=== PATIENT | male | born 1960 | race Caucasian/White ===

== ENCOUNTER 2017-08-29 22:47 | Inpatient (IN) ==
[2017-08-29] MEDS ORDERED: 0.9 % Sodium Chloride 1,000 ML IVC ONE (22:58)
[2017-08-29] MEDS ORDERED: Cefepime HCl 1,000 MG in Water for inj. (sterile) 20 ML 20 ML IVP STA (22:59)
--- NOTE | 2017-08-29 23:06 | Emergency Department Note ---
Disposition Clinical Impression: Bacteremia due to group B Streptococcus Osteomyelitis Qualifiers: Osteomyelitis type: acute hematogenous Osteomyelitis location: foot Laterality : right Qualified Code(s): M86.071 - Acute hematogenous osteomyelitis, right ankle and foot Diabetic ulcer of right foot Qualifiers: Diabetic foot ulcer location: toe Diabetes mellitus type: type 2 Non-pressure ulcer stage: unspecified non-pressure ulcer stage Qualified Code(s): E11.621 - Type 2 diabetes mellitus with foot ulcer; L97.519 - Non-pressure chronic ulcer of other part of right foot with unspecified severity; L97.519 - Non-pressure chronic ulcer of other part of right foot with unspecified severity; L97.519 - Non-pressure chronic ulcer of other part of right foot with unspecified severity ; L97.519 - Non-pressure chronic ulcer of other part of right foot with unspecified severity Disposition: Admitted As Inpatient Condition: Undetermined Referrals: Tha Dos Santos Jr, MD [Primary Care Provider] - Forms: ED Satisfaction Letter Time of Disposition: 00:16 Recheck wound or abnormal lab - General Chief Complaint: ED Recheck/Abnormal Lab/Rx Stated Complaint: Positive Culture Time Seen by Provider: 08/29/17 22:51 Source: patient Mode of arrival: ambulatory Limitations: no limitations Nursing Notes Reviewed: Yes Vital Signs Reviewed: Yes - History of Present Illness HPI Narrative: 57-year-old male diabetic with hypertension arrives to the emergency department complaint of generalized body aches, cough, diabetic foot ulcer of the right great toe. The patient was seen earlier today was evaluated with blood cultures drawn at that time. Blood cultures revealed group B strep. The patient was called to come back into the emergency department. The patient has continued to experience worsening symptoms and is complaining of third of his right great toe as well as cough. He was administered Tylenol prior to arrival. The patient states that he continues to feel ill. He denies any chest pain, difficulty breathing, abdominal pain but admits to fevers, chills, generalized weakness and right great toe. Is currently being taken care of by Dr. Boyd in podiatry. - Related Data Home Medications Medication Instructions Recorded Confirmed Carvedilol [Coreg] 12.5 mg PO BIDWM 02/10/15 08/29/17 Clopidogrel [Plavix] 75 mg PO DAILY 02/10/15 08/29/17 Losartan [Cozaar] 25 mg PO HS 02/10/15 08/29/17 Rosuvastatin [Crestor] 40 mg PO HS 02/10/15 08/29/17 Aspirin [Lo-Dose Aspirin EC] 81 mg PO DAILY 01/01/16 08/29/17 Magnesium Oxide [Magnesium] 500 mg PO BID 01/01/16 08/29/17 Ropinirole HCl [Requip] 1 mg PO HS 01/01/16 08/29/17 Bumetanide [Bumex] 1 mg PO BIDDIURETIC 02/09/16 08/29/17 Insulin Pump Cartridge [Insulin 1 device SQ AD 08/29/17 08/29/17 Pump] Spironolactone [Aldactone] 25 mg PO DAILY 08/29/17 08/29/17 Previous Rx's Medication Instructions Recorded Benzonatate [Tessalon] 200 mg PO TID PRN #21 capsule 08/29/17 Allergies Allergy/AdvReac Type Severity Reaction Status Date / Time chicken derived Allergy See Verified 08/29/17 22:51 Comments All systems ED: reviewed and negative except as stated. Constitutional: Reports: fever, chills, weakness ENT ED: Denies: congestion Cardiovascular: Reports: chest pain. Denies: dyspnea on exertion, edema Respiratory: Reports: cough, dyspnea. Denies: wheezes Gastrointestinal: Denies: abdominal pain Genitourinary: Denies: urgency, dysuria Musculoskeletal: Reports: arthralgia, myalgia. Denies: back pain, neck pain Integumentary: Denies: rash Neurological: Denies: headache Past Medical History - Past Medical History Attestation: Yes The following information was validated with the patient. Source: patient, old records reviewed Medical history: Reports: atrial fibrillation, cardiomyopathy, CHF, diabetes, myocardial infarction, other Surgical history: Reports: angioplasty/stent, other Psychiatric history: Reports: no psych history - Social History Smoking Status: Former smoker Smokeless Tobacco Status: No Alcohol use: Reports: rarely Drug use: Reports: none Physical Exam - General Limitations: no limitations General appearance: alert, in no apparent distress - Head Head exam: atraumatic, normocephalic, normal inspection - Eye Eye exam: Present: normal appearance, PERRL, EOMI - ENT ENT exam: normal exam, normal oropharynx, mucous membranes moist - Neck Neck exam: Present: normal inspection, full ROM, trachea midline - Chest Chest inspection: Present: normal inspection, symmetric chest wall rise - Respiratory Respiratory exam: Present: normal lung sounds bilaterally - Cardiovascular Cardiovascular exam: Present: regular rate, normal rhythm, normal heart sounds - Abdominal Exam Abdominal exam: Present: soft, Non-Tender. Absent: tenderness, distention, guarding, rebound, rigidity - Extremities Exam Extremities exam: Present: full ROM, tenderness (Right great toe and anterior tabares of the right side), other (Patient has a tunneled chronic diabetic foot ulcer on the plantar aspect of the right great toe. Upon bandage removal large amount of purulent fluid came out. Is mildly erythematous surrounding the wound.) - Neurological Exam Neurological exam: Present: alert, oriented X3 - Skin Skin exam: Present: warm, dry, normal color Course Vital Signs Temperature 98.5 F 08/29/17 22:49 Pulse Rate 75 08/29/17 22:49 Respiratory Rate 16 08/29/17 22:49 Blood Pressure 107/68 08/29/17 22:49 O2 Sat by Pulse Oximetry 95 08/29/17 22:49 Temperature 98.5 F 08/29/17 23:20 Pulse Rate 75 08/29/17 23:20 Respiratory Rate 16 08/29/17 23:20 Blood Pressure 107/68 08/29/17 23:20 O2 Sat by Pulse Oximetry 95 08/29/17 23:20 Oxygen Delivery Oxygen Delivery Room Air Recheck wound or abnormal lab - MDM Narrative Medical decision making narrative: Workup in the emergency department with some repeat labs demonstrates again an acute kidney injury. In addition the patient does have an elevated troponin at 0.06 which appears baseline for the patient, however the patient was administered aspirin. The patient denies any chest pain at this time. He is resting comfortably in the room. Given the patient's a diabetic foot ulcer on the right great toe, we performed a CT scan of the patient's foot with concern for possible osteomyelitis. There is some abnormalities noted on CT scan with concern for possible osteomyelitis. The patient was administered cefepime as well as vancomycin. The cefepime was administered prior to the results of the CT scan due to the patient's positive blood culture for group B strep. In addition vancomycin was administered due to the patient's positive finding for possible osteomyelitis. We will admit the patient to the hospital at this time for further workup and care. Patient made aware and agrees to plan. No further questions or concerns noted. Accepted by Dr. Wong. - Lab Data Lab results reviewed: Yes I reviewed the patient's lab results. Result diagrams: 08/29/17 22:58 Lab Results 08/29/17 Range/Units 22:58 Sodium 133 L (136-145) mEq/L Potassium 4.7 (3.5-5.1) mEq/L Chloride 100 (98-107) mEq/L Carbon Dioxide 26 (23-29) mEq/L BUN 44 H (6-20) mg/dL Creatinine 1.51 H (0.70-1.30) mg/dL Est GFR ( Amer) 58 L (> 60) Est GFR (Non-Af Amer) 48 L (> 60) BUN/Creatinine Ratio 29 H (6-26) Glucose 316 H (70-105) mg/dL Calculated Osmolality 299 (280-300) Calcium 7.9 L (8.6-10.3) mg/dL Troponin I 0.06 H* (< 0.04) ng/mL - Radiology Data Radiology results reviewed: Yes I reviewed the patient's radiology results. Foot CT 08/29/17 22:59 IMPRESSION: Focal soft tissue ulcerations measuring 4 mm along the plantar medial aspect of the 1st digit with underlying infiltration of the subcutaneous fat and skin thickening consistent with cellulitis. Cellulitis extends into the medial/dorsal aspect of the foot. No evidence of discrete drainable fluid collection or soft tissue gas. Subtle cortical irregularity along the plantar aspect of the 1st distal phalanx may represent findings of osteomyelitis. MRI would be more sensitive. D/ / Moncho Abad MD / Moncho Abad MD Interpreting Provider: Moncho Abad MD
--- NOTE | 2017-08-29 23:15 | Emergency Department Note ---
Disposition Clinical Impression: Bacteremia due to group B Streptococcus Disposition: Admitted As Inpatient Forms: ED Satisfaction Letter General Adult HPI - General Chief complaint: ED Recheck/Abnormal Lab/Rx Stated complaint: Positive Culture Time Seen by Provider: 08/29/17 22:51 Source: patient Mode of arrival: ambulatory Limitations: no limitations - History of Present Illness Pain Scale: 6 - Related Data Home Medications Medication Instructions Recorded Confirmed Carvedilol [Coreg] 12.5 mg PO BIDWM 02/10/15 08/29/17 Clopidogrel [Plavix] 75 mg PO DAILY 02/10/15 08/29/17 Losartan [Cozaar] 25 mg PO HS 02/10/15 08/29/17 Rosuvastatin [Crestor] 40 mg PO HS 02/10/15 08/29/17 Aspirin [Lo-Dose Aspirin EC] 81 mg PO DAILY 01/01/16 08/29/17 Magnesium Oxide [Magnesium] 500 mg PO BID 01/01/16 08/29/17 Ropinirole HCl [Requip] 1 mg PO HS 01/01/16 08/29/17 Bumetanide [Bumex] 1 mg PO BIDDIURETIC 02/09/16 08/29/17 Insulin Pump Cartridge [Insulin 1 device SQ AD 08/29/17 08/29/17 Pump] Spironolactone [Aldactone] 25 mg PO DAILY 08/29/17 08/29/17 Previous Rx's Medication Instructions Recorded Benzonatate [Tessalon] 200 mg PO TID PRN #21 capsule 08/29/17 Allergies Allergy/AdvReac Type Severity Reaction Status Date / Time chicken derived Allergy See Verified 08/29/17 22:51 Comments Constitutional: Reports: fever, chills, weakness ENT ED: Denies: congestion Cardiovascular: Reports: chest pain. Denies: dyspnea on exertion, edema Respiratory: Reports: cough, dyspnea. Denies: wheezes Gastrointestinal: Denies: abdominal pain Genitourinary: Denies: urgency, dysuria Musculoskeletal: Reports: arthralgia, myalgia. Denies: back pain, neck pain Integumentary: Denies: rash Neurological: Denies: headache Past Medical History - Past Medical History Medical history: Reports: atrial fibrillation, cardiomyopathy, CHF, diabetes, myocardial infarction, other Surgical history: Reports: angioplasty/stent, other Psychiatric history: Reports: no psych history - Social History Smoking Status: Former smoker Smokeless Tobacco Status: No Alcohol use: Reports: rarely Drug use: Reports: none Physical Exam - General Limitations: no limitations General appearance: alert, in no apparent distress Course Vital Signs Temperature 98.5 F 08/29/17 22:49 Pulse Rate 75 08/29/17 22:49 Respiratory Rate 16 08/29/17 22:49 Blood Pressure 107/68 08/29/17 22:49 O2 Sat by Pulse Oximetry 95 08/29/17 22:49 Temperature 98.5 F 08/29/17 22:49 Pulse Rate 75 08/29/17 22:49 Respiratory Rate 16 08/29/17 22:49 Blood Pressure 107/68 08/29/17 22:49 O2 Sat by Pulse Oximetry 95 08/29/17 22:49 Oxygen Delivery Oxygen Delivery Room Air Attestation Statement - Attestation Attestation: I examined this patient and my medical decision-making was reviewed with the Resident Physician. I agree with the documented findings, disposition and treatment plan as described except to the extent set forth below. 57 year old male presntes to the ED with comlanits of (+) blood culture for group B strep, it appears the infection is likely origniating from his right foot and is and is a diabetic and follows with [facility] podiatry. We will start karinao and nikko and admit to medicine.
[2017-08-29 23:47] LABS: Calcium 7.9 mg/dL (8.6-10.3); Potassium 4.7 mEq/L (3.5-5.1)
[2017-08-29 23:50] LABS: Troponin I 0.06 ng/mL (< 0.04)
[2017-08-29] MEDS ORDERED: Aspirin 325 MG TABLET PO ONE (23:51)
[2017-08-30] MEDS ORDERED: *HR* Dextrose 50 % in Water (Syg) 50 ML SYRINGE IVP PRN (00:21)
[2017-08-30] MEDS ORDERED: Dextrose Gel 15 GM/37.5 ML TUBE PO PRN ×2 (00:21)
[2017-08-30] MEDS ORDERED: D5% in Water 1,000 ML IVC PRN (00:21)
--- NOTE | 2017-08-30 00:45 | Internal Med History&Physical ---
Date of Encounter: 08/30/17 Time of Encounter: 00:31 Internal Medicine - H&P: HPI Chief complaint: Positive blood cultures Admitted From: Emergency Dept Plans for Post Hospital Care: Home History of present illness: Mr. Lyon is a 57 year old male with history of CAD s/p 2 stents, afib s/p ablation in 2012 was on Xarelto and taken off after 3 years of no afib episodes post ablation, DM, diabetic neuropathy, CKD3, htn who was called to come to the ED for positive blood cultures collected earlier in the day through the ED as he was evaluated earlier. At the time he had come in with constellation of symtoms including subjective fevers, chest tightness, cough that has been going on for 4 days or so. His also noted that his right toe ulceration has been tunneling and draining for the last couple of days. He underwent a work up in the ED and blood cultures were collected. He had elevated trops at .05 but is chronically elevated. EKG was done and showed no acute ST or T wave changes at the time. His language tutor at [facility] was consulted and reviewed the patient's findings and per documentation discharge was ok per them. Blood cultures came back + for GBS and the patient was called to come in later in the day. He has an ulceration on his right toe and a CT of his foot was done showing findings of cellulitis and possible osteomyelitis. He was given vancomycin and cefepime in the ED. labs showed no leukocytosis. creatinine slightly above baseline, trops at .06. The patient complains of generalized weakness and body aches. He sees Dr. Boyd in podiatry as an outpatient. He has had multiple other toe ulcerations that have been worked on by Dr. Boyd. Back in June he had some debridement done. The patient has had + wound cultures from the right great toe back in April of 2017 that grew E. coli, Strep agalactiae, and pseudomonas that was pansensitive. Per his he finished a course of oral abx at the time. Past Med Surg Social Fam HX - Past Medical History Medical history: atrial fibrillation, cardiomyopathy, CHF, diabetes, myocardial infarction, other Psychiatric history: no psych history - Past Surgical History Surgical History: angioplasty/stent, other - Social History Smoking Status: Former smoker Smokeless Tobacco Status: No Alcohol use: rarely Drug use: none - Family History Mother Family Member Ethnicity: Non- Living Status: Still Living Hx Family Cardiac Disorders: Yes Hx Family Respiratory Disorders: No Hx Family Cancer: No Hx Family GI Disorders: No Hx Family Endocrine Disorder: Yes Hx Family Neuromuscular Disorders: No Hx Family Neurologic Disorders: No Hx Family HEENT Disorders: No Hx Family Autoimmune Disorders: Yes Sister Adopted: [place]: Clarisse Lyon Age: 57 Living Status: Age at : 58 Cause of : Septic shock Hx Family Endocrine Disorder: Yes (DM) Internal Medicine - H&P: Meds Clopidogrel [Plavix] 75 mg PO DAILY 02/10/15 [History] Aspirin [Lo-Dose Aspirin EC] 81 mg PO DAILY 01/01/16 [History] Magnesium Oxide [Magnesium] 500 mg PO BID 01/01/16 [History] Ropinirole HCl [Requip] 1 mg PO HS 01/01/16 [History] Bumetanide [Bumex] 1 mg PO QPM 02/09/16 [History] Benzonatate [Tessalon] 200 mg PO TID PRN #21 capsule 08/29/17 [Rx] Insulin Pump Cartridge [Insulin Pump] 1 device SQ AD 08/29/17 [History] Spironolactone [Aldactone] 25 mg PO DAILY 08/29/17 [History] Atorvastatin Calcium [Lipitor] 80 mg PO .EVERY OTHER DAY 08/30/17 [History] Carvedilol [Coreg] 37.5 mg PO BID 08/30/17 [History] Dulaglutide [Trulicity] 0.75 mg SQ QWEEK 08/30/17 [History] Levomefolate/B6/B12/Algal Oil [Metanx Capsule] 1 tab PO BID 08/30/17 [History] Sacubitril/Valsartan [Entresto 97 mg-103 mg Tablet] 1 tab PO BID 08/30/17 [ History] 3 Allergy/AdvReac Type Severity Reaction Status Date / Time chicken derived Allergy See Verified 08/29/17 22:51 Comments All Systems PM: A 10-system review of systems was performed and is negative for pertinent findings except as documented above in the HPI. Review of systems: All systems reviewed are negative except for as mentioned above - Constitutional Vitals: Temp Pulse Resp BP Pulse Ox 98.5 F 75 16 107/68 95 08/29/17 23:20 08/29/17 23:20 08/29/17 23:20 08/29/17 23:20 08/29/17 23:20 Exam: GEN: NAD HEENT: AT, NC, No cyanosis, oral mucosa is moist, No JVD Lymphatics: No lymphadenoapthy Eyes: Extrocular muscles intact, anicteric CVS:RRR. S1, S2, No m/r/g RESP: CTAB ABD: Soft, NT, ND, +BS EXT: No edema, No rashes, 2+ DP. A couple of ulcerations noted on the LE legs. right great toe with tunneled ulceration on the plantar side of great right toe. pink colored drainage noted upon squeezing. NEURO: Nonfocal, CN II-XII intact, No focal motor or sensory deficits Psych: Cooperative, Not anxious or depressed Internal Med - H&P Results - Labs CBC & Chem 7: 08/29/17 22:58 Labs: BMP 08/29/17 22:58 Sodium 133 L Potassium 4.7 Chloride 100 Carbon Dioxide 26 BUN 44 H Creatinine 1.51 H Glucose 316 H Calcium 7.9 L Cardiac Enzymes 08/29/17 Range/Units 22:58 Troponin I 0.06 H* (< 0.04) ng/mL - Impressions ITS Impressions Foot CT 08/29/17 22:59 IMPRESSION: Focal soft tissue ulcerations measuring 4 mm along the plantar medial aspect of the 1st digit with underlying infiltration of the subcutaneous fat and skin thickening consistent with cellulitis. Cellulitis extends into the medial/dorsal aspect of the foot. No evidence of discrete drainable fluid collection or soft tissue gas. Subtle cortical irregularity along the plantar aspect of the 1st distal phalanx may represent findings of osteomyelitis. MRI would be more sensitive. D/ / Moncho Abad MD / Moncho Abad MD Interpreting Provider: Moncho Abad MD - Assessment and plan (1) Bacteremia due to group B Streptococcus Current Visit: Yes Status: Acute Assessment and plan: Likely from his foot as the source. Given vanco/cefepime in the ED. Patient is nontoxic looking. Will put him on zosyn for now and await final cultures. Repeat blood cultures in 1-2 days for resolution. (2) Osteomyelitis Current Visit: Yes Status: Acute Assessment and plan: consult podiatry. Will check ESR and CRP. abx as above. Send for wound culture. Qualifiers: Osteomyelitis type: other Osteomyelitis location: foot Laterality: right Qualified Code(s): M86.8X7 - Other osteomyelitis, ankle and foot (3) CKD (chronic kidney disease) Current Visit: Yes Status: Acute Assessment and plan: seems to be slightly above baseline. Will hold nephrotoxins for now (patient is on Aldactone and Bumex). No IVF due to history of CHF. Qualifiers: Chronic kidney disease stage: stage 3 (moderate) Qualified Code(s): N18.3 - Chronic kidney disease, stage 3 (moderate) (4) CHF (congestive heart failure) Current Visit: Yes Status: Acute Assessment and plan: Not in exacerbation. CXR is clear from earlier in the day. Hold bumex and aldactone for now. Those can possibly be restarted soon as his kidney function may be around baseline as it is. Hold coreg till BP improves. Patient has borderline EF of 35-40% on an echo from 2013 per documentations. states that his EF was in the 20s at some point after that and Entresto was started about 6 months ago and now he is back to 40% on an echo done at [facility] in May 2017. . No echo on file. Qualifiers: Heart failure type: systolic Heart failure chronicity: chronic Qualified Code(s): I50.22 - Chronic systolic (congestive) heart failure (5) CAD (coronary artery disease) Current Visit: No Status: Chronic Assessment and plan: Hold ASA/Plavix in case any procedures by podiatry. He was given 324 mg ASA in ED today. c/w statin. hold coreg due to borderline BP. Qualifiers: Coronary Disease-Associated Artery/Lesion type: [place] artery [place] vs. transplanted heart: [place] heart Associated angina: without angina Qualified Code(s): I25.10 - Atherosclerotic heart disease of [place] coronary artery without angina pectoris (6) Diabetes type 2, uncontrolled Current Visit: No Status: Acute Assessment and plan: check A1c. Will start sliding scale. Will give 20 unit levemir now. Qualifiers: Diabetes mellitus penitentiary insulin use: unspecified buttermaker continuous churn insulin use status Diabetes mellitus complication status: with kidney complications Diabetes mellitus complication detail: with chronic kidney disease Chronic kidney disease stage: stage 3 (moderate) Qualified Code(s): E11.22 - Type 2 diabetes mellitus with diabetic chronic kidney disease; E11.65 - Type 2 diabetes mellitus with hyperglycemia; E11.65 - Type 2 diabetes mellitus with hyperglycemia; E11.65 - Type 2 diabetes mellitus with hyperglycemia; E11.65 - Type 2 diabetes mellitus with hyperglycemia; N18.3 - Chronic kidney disease, stage 3 (moderate); N18.3 - Chronic kidney disease, stage 3 (moderate) (7) DVT prophylaxis Current Visit: No Status: Acute Assessment and plan: heparin SQ - Time Spent With Patient Total time spent is greater than 50% in coordination of care (as documented) at patient's floor/unit and/or counseling patient:
[2017-08-30] MEDS ORDERED: Naloxone 0.4 MG/ML INJ IVP PRN (00:46)
[2017-08-30] MEDS ORDERED: Insulin DETEMIR 100 UNIT/ML X5UNITS SQ ONE (00:57)
[2017-08-30] MEDS: Ondansetron 4 MG/2 ML VIAL IVP PRN ×2 (01:47→12:41)
[2017-08-30 05:05] LABS: Hematocrit 29.3 % (37.5-50.1); Immature Platelets 3.7 % (1.1-6.1)
[2017-08-30] MEDS: *HR* Heparin 5,000 UNIT/ML VIAL SQ SCH ×3 (05:08→22:09)
[2017-08-30 05:23] LABS: BUN/Creatinine Ratio 31 (6-26); Blood Urea Nitrogen 45 mg/dL (6-20); Calcium 8.1 mg/dL (8.6-10.3); Carbon Dioxide 27 mEq/L (23-29); Chloride 101 mEq/L (98-107); Glucose 290 mg/dL (70-105); Magnesium 2.7 mg/dL (1.6-2.6); Osmolality,Calculated 298 (280-300); Potassium 4.3 mEq/L (3.5-5.1); Sodium 133 mEq/L (136-145); eGFR For African Americans > 60 (> 60); eGFR For Non-African Americans 50 (> 60)
[2017-08-30 05:50] LABS: Basophils % 0.2 %; Eosinophils % 0.2 %; Hemoglobin 9.4 g/dL (12.9-16.9); Immature Granulocytes % 0.2 % (0-4); Lymphocytes # 0.4 K/mcL (0.6-4.6); Lymphocytes % 8.7 %; Mean Corpuscular HGB Conc 32.1 g/dL (31.6-35.5); Mean Corpuscular Hemoglobin 29.4 pg (28.0-33.3); Mean Corpuscular Volume 91.6 fL (83.0-100.0); Mean Platelet Volume 11.2 fL (9.4-12.4); Monocytes # 0.5 K/mcL (0.0-1.3); Monocytes % 11.7 %; Neutrophils # 3.4 K/mcL (1.6-8.9); Red Cell Distribution Width 14.7 % (11.5-14.5)
[2017-08-30 05:55] LABS: Platelet Count 95 K/mcL (140-400)
[2017-08-30] MEDS: Piperacillin/Tazobactam 3.375 GM in 0.9 % Sodium Chloride Mini Bag 100 ML IVPB SCH ×3 (08:41→23:39)
[2017-08-30] MEDS: Insulin LISPRO 300 UNITS/3 ML VIAL SQ SCH ×3 (08:45→17:24)
[2017-08-30 09:40] LABS: Estimated Average Glucose 301 mg/dl; Hemoglobin A1C 12.1 %
--- NOTE | 2017-08-30 10:18 | Event Note ---
Date of Encounter: 08/30/17 Time of Encounter: 09:50 Patient continues to have cough. Denies any abdominal pain. Does have nausea. No fever reported overnight. Awaiting evaluation by podiatry. The right great toe plantar ulcer draining purulent material. Tender to palpation. Continue current antibiotics. Supportive care. Monitor vital signs closely. Follow podiatry recommendations.
[2017-08-30] MEDS: Acetaminophen 325 MG TABLET PO PRN ×2 (15:16→22:10)
--- NOTE | 2017-08-30 16:12 | Podiatry Consult Note ---
Date of Encounter: 08/30/17 Time of Encounter: 12:00 Assessment and Plan (1) Diabetes type 2, controlled Current visit: No Status: Acute Qualifiers: Diabetes mellitus detention insulin use: with detention use Diabetes mellitus complication status: with hyperglycemia Qualified Code(s): E11.65 - Type 2 diabetes mellitus with hyperglycemia; Z79.4 - long-term (current) use of insulin (2) Toe ulcer due to DM Current visit: No Status: Acute Jennings stage 2 possible stage 3 ulceration of right great toe Plan: Admit for IV antibiotics Positive blood cultures on admission +GBS started on Zosyn Wound cultures obtained- await results CT scan obtained- Subtle cortical irregularity along the plantar aspect of the 1st distal phalanx may represent findings of osteomyelitis.- WBC normal, mildly elevated CRP and ESR- possibility of active osteo with immunosupression Will obtain 3 phase bone scan with possible indium scan following to determine if osteomyelitis is present Assessed wound at bedside, flushed with saline There is a 0.3cmx0.4cmx0.4cm ulceration to the medial base of the right great toe There is undermining of wound measuring 0.4cm circumference To assessment there is no probe to underlying structures noted at this time There is moderate purulent drainage noted to bandage which was removed from patients toe however there is no drainage on exam No odor, no fluctuance Will plan to remove devitalized tissue from wound tomorrow to allow for accurate assessment of wound bed and proper healing Calcium alginate applied to wound due to drainage, will write for BID dressing changes Foot CT 08/29/17 22:59 IMPRESSION: Focal soft tissue ulcerations measuring 4 mm along the plantar medial aspect of the 1st digit with underlying infiltration of the subcutaneous fat and skin thickening consistent with cellulitis. Cellulitis extends into the medial/dorsal aspect of the foot. No evidence of discrete drainable fluid collection or soft tissue gas. Subtle cortical irregularity along the plantar aspect of the 1st distal phalanx may represent findings of osteomyelitis. MRI would be more sensitive. D/ / 08/30/2017 07:24:18 Moncho Abad MD / silverio Interpreting Provider: Moncho Abad MD Foot X-Ray 08/30/17 10:19 IMPRESSION: Soft tissue swelling of the great toe with plantar ulcer. No subcutaneous gas or osseous destruction identified. If there remains concern for osteomyelitis, MRI is recommended. D/ / Ambrose Owen / Ambrose Owen Interpreting Provider: Ambrose Owen Qualifiers: Diabetes mellitus type: due to underlying condition Laterality: right Non -pressure ulcer stage: with fat layer exposed Qualified Code(s): E08.621 - Diabetes mellitus due to underlying condition with foot ulcer; L97.512 - Non- pressure chronic ulcer of other part of right foot with fat layer exposed; L97.512 - Non-pressure chronic ulcer of other part of right foot with fat layer exposed; L97.512 - Non-pressure chronic ulcer of other part of right foot with fat layer exposed; L97.512 - Non-pressure chronic ulcer of other part of right foot with fat layer exposed (3) Skin tear Current visit: Yes Status: Acute There is a scabbed skin tear of the right skin with surrounding ecchymosis without clinical signs of infection Cleansed with saline, intact and appears to be healing Allevyn applied for protection Change Q72 hours History of Present Illness HPI: Mr. Lyon is a 57 year old male known to and the wound care clinic. Patient has had ongoing ulceration of the right great toe since mar 2017. Patient has a known history of uncontrolled DM2, CHF, CAD and CKD. Patient arrived to ED with reports of general malaise x4 days with reported fevers, chills and flu like symptoms. states 2 days ago she noticed purulent drainage from the right great toe chronic ulceration. Patient was also noted and called about +BC prior to admission. +GBS. Patient was admitted for IV antibiotics and evaluation. Upon arrival patient states he continues to feel weak and fevered. also notes he has a skin tear of his right tabares which she reports he hit on the tractor a few days ago. Denies any current calf pain or SOB. Patient had elevated troponins on admission and is under series, monitoring. WBC 4.5, ESR 46, CRP 91, glucose 200-300 and is afebrile. Patient was admitted and started on zosyn. We have been consulted for wound management and possible osteo of the right distal phalynx . Past Med Surg Social Fam HX - Past Medical History Medical history: atrial fibrillation, cardiomyopathy, CHF, diabetes, myocardial infarction, other Psychiatric history: no psych history - Past Surgical History Surgical History: angioplasty/stent, other - Social History Smoking Status: Former smoker Smokeless Tobacco Status: No Alcohol use: rarely Drug use: none - Family History Sister Adopted: [place]: Clarisse Lyon Age: 57 Living Status: Age at : 57 Cause of : Septic shock Hx Family Endocrine Disorder: Yes (DM) Mother Adopted: [place]: Stephanie Lyon Age: 84 Family Member Ethnicity: Non- Living Status: Still Living Hx Family Cardiac Disorders: Yes Hx Family Respiratory Disorders: No Hx Family Cancer: No Hx Family GI Disorders: No Hx Family Endocrine Disorder: Yes Hx Family Neuromuscular Disorders: No Hx Family Neurologic Disorders: No Hx Family HEENT Disorders: No Hx Family Autoimmune Disorders: Yes Medications and Allergies Clopidogrel [Plavix] 75 mg PO DAILY 02/10/15 [History] Aspirin [Lo-Dose Aspirin EC] 81 mg PO DAILY 01/01/16 [History] Magnesium Oxide [Magnesium] 500 mg PO BID 01/01/16 [History] Ropinirole HCl [Requip] 1 mg PO HS 01/01/16 [History] Bumetanide [Bumex] 1 mg PO QPM 02/09/16 [History] Benzonatate [Tessalon] 200 mg PO TID PRN #21 capsule 08/29/17 [Rx] Insulin Pump Cartridge [Insulin Pump] 1 device SQ AD 08/29/17 [History] Spironolactone [Aldactone] 25 mg PO DAILY 08/29/17 [History] Atorvastatin Calcium [Lipitor] 80 mg PO .EVERY OTHER DAY 08/30/17 [History] Carvedilol [Coreg] 37.5 mg PO BID 08/30/17 [History] Dulaglutide [Trulicity] 0.75 mg SQ QWEEK 08/30/17 [History] Levomefolate/B6/B12/Algal Oil [Metanx Capsule] 1 tab PO BID 08/30/17 [History] Sacubitril/Valsartan [Entresto 97 mg-103 mg Tablet] 1 tab PO BID 08/30/17 [ History] 3 Allergy/AdvReac Type Severity Reaction Status Date / Time chicken derived Allergy See Verified 08/29/17 22:51 Comments All Systems Reviewed: As per HPI Physical Exam - Constitutional Vitals: Temp Pulse Resp BP Pulse Ox 98.2 F 69 15 127/77 94 08/30/17 15:32 08/30/17 15:32 08/30/17 15:32 08/30/17 15:32 08/30/17 15:32 Exam: General Examination: CONSTITUTIONAL: Alert, oriented, in no acute distress, non-toxic. EXTREMITIES: CFT 3 seconds all toes. Edema +1 and pedal pulses palpable. SKIN: There is a 0.3cmx0.4cmx0.4cm ulceration to the medial base of the right great toe jennings stage 2 possible stage 3 There is undermining of wound measuring 0.4cm circumference Appears to be healthy granulation tissue to base but will need formal debridement at bedside for removal of devitalized tissue To assessment there is no probe to underlying structures noted at this time There is moderate purulent drainage noted to bandage which was removed from patients toe however there is no drainage on exam No odor, no fluctuance Mild erythema and edema noted to toe, does not extend to dorsum of foot. No ascending cellulitis noted at this time Mild warmth of toe to palpation. There is also a 2.5cmx1.5cm skin tear of the right skin. Skin intact. No fluctuance. Scab noted. Surrouding ecchymosis. No surrounding erythema or edema. No clinical signs of infection. No drainage. NEUROLOGIC: Loss of protective sensation, no sensation to light or moderate touch Results - Labs Result Diagrams: 08/30/17 04:49 08/30/17 04:49 Labs: Abnormal lab results RBC 3.20 M/mcL (4.19-5.50) L 08/30/17 04:49 Hgb 9.4 g/dL (12.9-16.9) L D 08/30/17 04:49 Hct 29.3 % (37.5-50.1) L 08/30/17 04:49 RDW 14.7 % (11.5-14.5) H 08/30/17 04:49 Plt Count 95 K/mcL (140-400) L 08/30/17 04:49 Lymphocytes # 0.4 K/mcL (0.6-4.6) L 08/30/17 04:49 ESR 46 mm/hr (0-10) H 08/29/17 23:09 Sodium 133 mEq/L (136-145) L 08/30/17 04:49 BUN 45 mg/dL (6-20) H 08/30/17 04:49 Creatinine 1.45 mg/dL (0.70-1.30) H 08/30/17 04:49 Est GFR (Non-Af Amer) 50 (> 60) L 08/30/17 04:49 BUN/Creatinine Ratio 31 (6-26) H 08/30/17 04:49 Glucose 290 mg/dL (70-105) H 08/30/17 04:49 POC Glucose 104 mg/dL (70-99) H 08/30/17 11:32 Hemoglobin A1c 12.1 % (-5.6) H 08/30/17 04:49 Calcium 8.1 mg/dL (8.6-10.3) L 08/30/17 04:49 Magnesium 2.7 mg/dL (1.6-2.6) H 08/30/17 04:49 Troponin I 0.05 ng/mL (< 0.04) H* 08/30/17 10:41 C-Reactive Protein 97 mg/L (Less than 10) H 08/29/17 22:58 H & H 08/30/17 Range/Units 04:49 Hgb 9.4 L D (12.9-16.9) g/dL Hct 29.3 L (37.5-50.1) % All other labs normal. Consult Discharge Plan - Plan Referrals: Tha Dos Santos Jr, MD [Primary Care Provider] -
[2017-08-30] MEDS: rOPINIRole 1 MG TABLET PO SCH (20:53)
[2017-08-30] MEDS ORDERED: Insulin LISPRO 300 UNITS/3 ML VIAL SQ SCH (21:00)
[2017-08-31 00:58] LABS: Basophils % 0.3 %; Eosinophils # 0.1 K/mcL (0.0-0.6); Eosinophils % 1.8 %; Hematocrit 29.4 % (37.5-50.1); Hemoglobin 9.4 g/dL (12.9-16.9); Immature Granulocytes % 0.9 % (0-4); Lymphocytes # 0.7 K/mcL (0.6-4.6); Lymphocytes % 20.6 %; Mean Corpuscular Hemoglobin 28.8 pg (28.0-33.3); Mean Corpuscular Volume 90.2 fL (83.0-100.0); Mean Platelet Volume 10.9 fL (9.4-12.4); Monocytes # 0.4 K/mcL (0.0-1.3); Monocytes % 12.1 %; Neutrophils # 2.2 K/mcL (1.6-8.9); Platelet Count 119 K/mcL (140-400); Red Blood Count 3.26 M/mcL (4.19-5.50); Red Cell Distribution Width 14.6 % (11.5-14.5); Segmented Neutrophils % 64.3 %
[2017-08-31 01:14] LABS: Large Platelets Present (Not Present); Platelet Estimate Decreased (Normal); Reactive Lymphocytes Present (Not Present)
[2017-08-31 01:15] LABS: Calcium 8.1 mg/dL (8.6-10.3); Potassium 4.6 mEq/L (3.5-5.1)
[2017-08-31] MEDS: *HR* Heparin 5,000 UNIT/ML VIAL SQ SCH ×3 (06:27→21:22)
[2017-08-31] MEDS ORDERED: Ringers Solution, Lactated 1,000 ML IVC SCH (08:15)
[2017-08-31] MEDS: Insulin LISPRO 300 UNITS/3 ML VIAL SQ SCH ×4 (08:18→20:28)
[2017-08-31] MEDS: Piperacillin/Tazobactam 3.375 GM in 0.9 % Sodium Chloride Mini Bag 100 ML IVPB SCH ×2 (09:30→16:59)
[2017-08-31] MEDS: METANX PO SCH ×2 (10:43→20:29)
[2017-08-31] MEDS: SACUBITRIL/VALSARTAN 97/103 MG TABLET PO SCH ×2 (11:03→20:30)
[2017-08-31] MEDS: Acetaminophen 325 MG TABLET PO PRN (13:18)
--- NOTE | 2017-08-31 13:27 | Internal Med Progress Note ---
Date of Encounter: 08/31/17 Time of Encounter: 11:45 - Assessment and plan (1) Bacteremia due to group B Streptococcus Current Visit: Yes Status: Acute Assessment and plan: Repeat blood cultures have been sent. Wound culture growing group B strep. Most likely source of infection. Evaluating for possible underlying osteomyelitis. Bone scan does not show any features of osteomyelitis. Podiatry following. Plan for bedside debridement later today. Continue broad- spectrum antibiotics for now. If no signs of bone infection, will de-escalate and consult infectious disease for antibiotic recommendations. (2) Osteomyelitis Current Visit: Yes Status: Suspected Assessment and plan: Bone scan done today does not appear to show features suggestive of acute osteomyelitis. Qualifiers: Osteomyelitis type: other Osteomyelitis location: foot Laterality: right Qualified Code(s): M86.8X7 - Other osteomyelitis, ankle and foot (3) CAD (coronary artery disease) Current Visit: Yes Status: Chronic Assessment and plan: Continue Coreg, Lipitor. Qualifiers: Coronary Disease-Associated Artery/Lesion type: lummi artery [place] vs. transplanted heart: lummi heart Associated angina: without angina Qualified Code(s): I25.10 - Atherosclerotic heart disease of lummi coronary artery without angina pectoris (4) Diabetes type 2, uncontrolled Current Visit: Yes Status: Chronic Assessment and plan: Controlled at this time. Continue sliding scale insulin coverage and diabetic diet. Qualifiers: Diabetes mellitus terminal clerk insulin use: unspecified alf insulin use status Diabetes mellitus complication status: with kidney complications Diabetes mellitus complication detail: with chronic kidney disease Chronic kidney disease stage: stage 3 (moderate) Qualified Code(s): E11.22 - Type 2 diabetes mellitus with diabetic chronic kidney disease; E11.65 - Type 2 diabetes mellitus with hyperglycemia; E11.65 - Type 2 diabetes mellitus with hyperglycemia; E11.65 - Type 2 diabetes mellitus with hyperglycemia; E11.65 - Type 2 diabetes mellitus with hyperglycemia; N18.3 - Chronic kidney disease, stage 3 (moderate); N18.3 - Chronic kidney disease, stage 3 (moderate) (5) CKD (chronic kidney disease) Current Visit: Yes Status: Chronic Assessment and plan: Renal function is slightly worse. Will start patient on IV hydration. Monitor vital renal function closely. Avoid nephrotoxic agents. Qualifiers: Chronic kidney disease stage: stage 3 (moderate) Qualified Code(s): N18.3 - Chronic kidney disease, stage 3 (moderate) (6) CHF (congestive heart failure) Current Visit: Yes Status: Chronic Assessment and plan: Not in acute exacerbation. Continue home medications. Qualifiers: Heart failure type: systolic Heart failure chronicity: chronic Qualified Code(s): I50.22 - Chronic systolic (congestive) heart failure (7) DVT prophylaxis Current Visit: No Status: Acute Assessment and plan: Continue subcutaneous heparin - Time Spent With Patient Total time spent is greater than 50% in coordination of care (as documented) at patient's floor/unit and/or counseling patient: - Subjective Interval history: Patient is awake and alert. Does continue to have cough. Has had hoarseness in his voice today. Denies any fever or chills overnight. Pain in his right foot is stable. Tolerating diet well. - Constitutional Vitals: Temp Pulse Resp BP Pulse Ox 97.9 F 76 18 145/76 93 08/31/17 11:16 08/31/17 11:16 08/31/17 11:16 08/31/17 11:16 08/31/17 11:16 General appearance: Present: cooperative, A&O X 3, answers questions appropriately - Neck Neck exam general surgery: Present: supple, trachea midline. Absent: lymphadenopathy - Respiratory Respiratory exam: Present: CTAB. Absent: accessory muscle use, rales, rhonchi, wheezes - Cardiovascular Cardiovascular exam: Present: RRR, +S1, +S2. Absent: diastolic murmur, gallop, rubs, systolic murmur - GI/Abdominal GI/Abdominal exam: Present: normal bowel sounds, soft, no peritoneal signs. Absent: distended, tenderness - Extremities Exam Extremities exam: Present: warm, radial pulses palpable and symmetrical. Absent : calf tenderness, cyanotic, pedal edema Additional comments: Right great toe plantar surface ulcer draining serosanguineous fluid. - Neurological Exam Neurological exam: Present: CN II-XII intact, oriented X3, no focal deficits. Absent: facial droop, speech deficit - Skin Skin exam: Present: dry, intact Internal Medicine: Result - Labs CBC & Chem 7: 08/31/17 00:35 08/31/17 00:35 Labs: Short CBC 08/31/17 Range/Units 00:35 WBC 3.4 L (4.3-11.1) K/mcL Hgb 9.4 L (12.9-16.9) g/dL Hct 29.4 L (37.5-50.1) % Plt Count 119 L (140-400) K/mcL Neutrophils # 2.2 (1.6-8.9) K/mcL BMP 08/31/17 00:35 Sodium 137 Potassium 4.6 Chloride 103 Carbon Dioxide 30 H BUN 46 H Creatinine 1.63 H Glucose 140 H Calcium 8.1 L - Impressions Impressions Foot X-Ray 08/30/17 10:19 IMPRESSION: Soft tissue swelling of the great toe with plantar ulcer. No subcutaneous gas or osseous destruction identified. If there remains concern for osteomyelitis, MRI is recommended. D/ / Ambrose Owen / Ambrose Owen Interpreting Provider: Ambrose Owen Bone Scan Nuclear Medicine 08/30/17 16:05 IMPRESSION: Findings are most suggestive of soft tissue inflammation of the right great toe. No significant delayed uptake to suggest active osteomyelitis. D/ / Khanh Ocampo MD / Khanh Ocampo MD Interpreting Provider: Khanh Ocampo MD Consult Discharge Plan - Plan Referrals: Tha Dos Santos Jr, MD [Primary Care Provider] -
--- NOTE | 2017-08-31 17:00 | Podiatry Progress Note ---
Date of Encounter: 08/31/17 Time of Encounter: 12:00 - Assessment and Plan (1) Diabetes type 2, controlled Status: Acute Qualifiers: Diabetes mellitus emt intermediate insulin use: with snf use Diabetes mellitus complication status: with hyperglycemia Qualified Code(s): E11.65 - Type 2 diabetes mellitus with hyperglycemia; Z79.4 - terminal carman (current) use of insulin (2) Toe ulcer due to DM Status: Acute Jennings stage 2 possible stage 3 ulceration of right great toe Plan: Admit for IV antibiotics Positive blood cultures on admission +GBS started on Zosyn - ID has been consulted Wound cultures obtained- await results CT scan obtained- Subtle cortical irregularity along the plantar aspect of the 1st distal 3 phase bone scan obtained with minimal suspicion of osteo at this time will hold off on further testing due to minimal suspicion of osteo Assessed wound at bedside, flushed with saline There is a 0.3cmx0.4cmx0.4cm ulceration to the medial base of the right great toe Debridement of all devitalized tissue performed at bedside using sterile #15 blade, tissue nippers and pickups Patient tolerated well. no complications. Healthy granulation tissue noted to base To assessment there is no probe to underlying structures noted at this time No odor, no fluctuance Cleansed with saline, painted with betadine, CA alginate and dry dressing applied Continue calcium alginate applied to wound due to drainage, Bone Scan Nuclear Medicine 08/30/17 16:05 IMPRESSION: Findings are most suggestive of soft tissue inflammation of the right great toe. No significant delayed uptake to suggest active osteomyelitis. D/ / Khanh Ocampo MD / Khanh Ocampo MD Interpreting Provider: Khanh Ocampo MD dressing changes Foot CT 08/29/17 22:59 IMPRESSION: Focal soft tissue ulcerations measuring 4 mm along the plantar medial aspect of the 1st digit with underlying infiltration of the subcutaneous fat and skin thickening consistent with cellulitis. Cellulitis extends into the medial/dorsal aspect of the foot. No evidence of discrete drainable fluid collection or soft tissue gas. Subtle cortical irregularity along the plantar aspect of the 1st distal phalanx may represent findings of osteomyelitis. MRI would be more sensitive. D/ / 08/30/2017 07:24:18 Moncho Abad MD / silverio Interpreting Provider: Moncho Abad MD Foot X-Ray 08/30/17 10:19 IMPRESSION: Soft tissue swelling of the great toe with plantar ulcer. No subcutaneous gas or osseous destruction identified. If there remains concern for osteomyelitis, MRI is recommended. D/ / Ambrose Owen / Ambrose Owen Interpreting Provider: Ambrose Owen Qualifiers: Diabetes mellitus type: due to underlying condition Laterality: right Non -pressure ulcer stage: with fat layer exposed Qualified Code(s): E08.621 - Diabetes mellitus due to underlying condition with foot ulcer; L97.512 - Non- pressure chronic ulcer of other part of right foot with fat layer exposed; L97.512 - Non-pressure chronic ulcer of other part of right foot with fat layer exposed; L97.512 - Non-pressure chronic ulcer of other part of right foot with fat layer exposed; L97.512 - Non-pressure chronic ulcer of other part of right foot with fat layer exposed (3) Skin tear Status: Acute There is a scabbed skin tear of the right skin with surrounding ecchymosis without clinical signs of infection Cleansed with saline, intact and appears to be healing Allevyn applied for protection Change Q72 hours Subjective Interval history: Patient was admitted to [facility] for evaluation of right foot ulceration and sepsis. He is being treated with IV antibiotics for +cultures of GBS and local wound care of the right great toe. Patient resting comfortably on arrival. States he feels ok. He is neuropathic and denies pain. Denies fevers, chills, n/ v through the night. Objective - Vital Signs Vital Signs: Vital Signs Temp Pulse Resp BP Pulse Ox 08/31/17 15:59 97.7 F 73 16 160/90 100 08/31/17 11:16 97.9 F 76 18 145/76 93 08/31/17 06:14 97.9 F 70 18 137/86 94 08/31/17 03:27 98.0 F 73 14 129/70 93 08/30/17 23:37 98.2 F 73 14 119/65 95 08/30/17 19:04 98.3 F 75 14 117/61 94 Intake and Output 08/31/17 08/31/17 08/31/17 07:59 15:59 23:59 Intake Total 100 / 100 120 / 120 Balance 100 / 100 120 / 120 Intake: IV Fluids 100 / 100 Zosyn 3.375 GM In 0.9 % Sodium 100 / 100 Chloride (Mini-Bag +) 100 ML @ 25 mls/hr IVPB Q8HR [facility] [place] Rx#: [id number] Oral 0 / 0 120 / 120 Other: Meal Lunch Percent of Meal Consumed 50% Stool Size Moderate Stool Consistency loose soft Stool Color Brown # Voids 1 # Bowel Movements 1 Weight 111.38 kg Blood Glucose* 124 258 Patient Weight 08/31/17 23:59 Weight 111.38 kg - Exam Exam: General Examination: CONSTITUTIONAL: Alert, oriented, in no acute distress, non-toxic. EXTREMITIES: CFT 3 seconds all toes. Edema +1 and pedal pulses palpable. SKIN: There is a 0.3cmx0.4cmx0.4cm ulceration to the medial base of the right great toe jennings stage 2 possible stage 3 There is undermining of wound measuring 0.4cm circumference Wound was thoroughly debrided at bedside reveling a [id number] wound of the plantar aspect of the toe without noted probe to underlying structures. 100% healthy granulation tissue. Scant bloody drainage. No purulent drainage. No odor. No sinus tracts or tunneling. Erythema to toe has improved, remains prominent but reduced No odor, no fluctuance, mild warmth continues Mild erythema and edema noted to toe, does not extend to dorsum of foot. No ascending cellulitis noted at this time There is also a 2.5cmx1.5cm skin tear of the right skin. Skin intact. Scant serous fluid released from under scab today. Scab noted. Surrouding ecchymosis. No surrounding erythema or edema. No clinical signs of infection. No drainage. NEUROLOGIC: Loss of protective sensation, no sensation to light or moderate touch - Lab Result Diagrams: 09/02/17 04:00 09/02/17 04:00 Labs: Abnormal lab results WBC 3.4 K/mcL (4.3-11.1) L 08/31/17 00:35 RBC 3.26 M/mcL (4.19-5.50) L 08/31/17 00:35 Hgb 9.4 g/dL (12.9-16.9) L 08/31/17 00:35 Hct 29.4 % (37.5-50.1) L 08/31/17 00:35 RDW 14.6 % (11.5-14.5) H 08/31/17 00:35 Plt Count 119 K/mcL (140-400) L 08/31/17 00:35 Reactive Lymphocytes Present (Not Present) A 08/31/17 00:35 Platelet Estimate Decreased (Normal) L 08/31/17 00:35 Large Platelets Present (Not Present) A 08/31/17 00:35 ESR 46 mm/hr (0-10) H 08/29/17 23:09 Carbon Dioxide 30 mEq/L (23-29) H 08/31/17 00:35 BUN 46 mg/dL (6-20) H 08/31/17 00:35 Creatinine 1.63 mg/dL (0.70-1.30) H 08/31/17 00:35 Est GFR ( Amer) 53 (> 60) L 08/31/17 00:35 Est GFR (Non-Af Amer) 44 (> 60) L 08/31/17 00:35 BUN/Creatinine Ratio 28 (6-26) H 08/31/17 00:35 Glucose 140 mg/dL (70-105) H 08/31/17 00:35 POC Glucose 258 mg/dL (70-99) H 08/31/17 16:01 Hemoglobin A1c 12.1 % (-5.6) H 08/30/17 04:49 Calcium 8.1 mg/dL (8.6-10.3) L 08/31/17 00:35 Magnesium 2.7 mg/dL (1.6-2.6) H 08/30/17 04:49 Troponin I 0.05 ng/mL (< 0.04) H* 08/30/17 10:41 C-Reactive Protein 97 mg/L (Less than 10) H 08/29/17 22:58 Microbiology, Last 48 Hours 08/30/17 01:55 Wound Culture - Final Right Foot Strep agalactiae - (Group B) Consult Discharge Plan - Plan Instructions: Diabetes Mellitus Type 2 in Adults (DC) Additional Instructions: IF SYMPTOMS RETURN OR WORSEN, OR YOU DEVELOP FEVER OR CHILLS, PLEASE CALL YOUR PCP, 911 OR GO TO THE NEAREST EMERGENCY ROOM. PLEASE WATCH THE SIT CAREFULLY FOR CONCERNS. KEEP SITE CLEAN AND DRY AT ALL TIMES. COMPLETE DRESSING CHANGES INSTRUCTED. Referrals: Tha Dos Santos Jr, MD [Primary Care Provider] - 09/07/17 10:00 am Stu Boyd DPM [Partnered Physician] - 09/09/17 10:30 am Roberto Holyl MD [Partnered Physician] - 09/14/17 3:00 pm Prescriptions: Albuterol Sulfate [Albuterol Inhaler] 2 puff IH Q4HR PRN #1 [id number] PRN Reason: Shortness Of Breath Azithromycin [Zithromax] 500 mg PO DAILY #3 tablet Lactobacillus [Culturelle] 1 each PO BID #28 cap.sprink Penicillin G Potassium [Pfizerpen] 12,000,000 unit IVPB DAILY #12 vial
[2017-08-31] MEDS: Lactobacillus 1 EACH CAP.SPRINK PO SCH (20:28)
[2017-08-31] MEDS: rOPINIRole 1 MG TABLET PO SCH (20:28)
[2017-08-31] MEDS: Penicillin G Potassium 4,000,000 UNIT in D5% in Water 100 ML IVPB SCH (20:29)
[2017-09-01 01:21] LABS: Basophils % 0.6 %; Eosinophils # 0.1 K/mcL (0.0-0.6); Eosinophils % 2.5 %; Hematocrit 29.8 % (37.5-50.1); Hemoglobin 9.6 g/dL (12.9-16.9); Immature Granulocytes % 1.1 % (0-4); Lymphocytes # 0.8 K/mcL (0.6-4.6); Lymphocytes % 21.5 %; Mean Corpuscular HGB Conc 32.2 g/dL (31.6-35.5); Mean Corpuscular Hemoglobin 29.2 pg (28.0-33.3); Mean Corpuscular Volume 90.6 fL (83.0-100.0); Mean Platelet Volume 10.7 fL (9.4-12.4); Monocytes # 0.5 K/mcL (0.0-1.3); Monocytes % 13.7 %; Neutrophils # 2.2 K/mcL (1.6-8.9); Platelet Count 139 K/mcL (140-400); Red Blood Count 3.29 M/mcL (4.19-5.50); Red Cell Distribution Width 14.5 % (11.5-14.5); Segmented Neutrophils % 60.6 %
[2017-09-01 01:42] LABS: BUN/Creatinine Ratio 33 (6-26); Blood Urea Nitrogen 36 mg/dL (6-20); Calcium 8.1 mg/dL (8.6-10.3); Carbon Dioxide 28 mEq/L (23-29); Chloride 105 mEq/L (98-107); Glucose 129 mg/dL (70-105); Osmolality,Calculated 296 (280-300); Potassium 4.4 mEq/L (3.5-5.1); Sodium 138 mEq/L (136-145); eGFR For African Americans > 60 (> 60); eGFR For Non-African Americans > 60 (> 60)
[2017-09-01 01:46] LABS: Platelet Estimate Decreased (Normal)
[2017-09-01] MEDS: Penicillin G Potassium 4,000,000 UNIT in D5% in Water 100 ML IVPB SCH ×6 (04:46→20:14)
[2017-09-01] MEDS: *HR* Heparin 5,000 UNIT/ML VIAL SQ SCH ×3 (06:42→22:27)
[2017-09-01] MEDS ORDERED: Ipratropium/Albuterol Neb 3 ML IH PRN (08:13)
[2017-09-01] MEDS: Insulin LISPRO 300 UNITS/3 ML VIAL SQ SCH ×4 (08:25→20:15)
[2017-09-01] MEDS: Clindamycin 600 MG/50 ML 600 MG/50 ML IV.SOLN IVPB SCH ×2 (08:26)
[2017-09-01] MEDS: SACUBITRIL/VALSARTAN 97/103 MG TABLET PO SCH ×2 (08:27→20:15)
[2017-09-01] MEDS: METANX PO SCH ×2 (08:27→20:15)
[2017-09-01] MEDS: Lactobacillus 1 EACH CAP.SPRINK PO SCH ×2 (08:27→20:15)
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
--- NOTE | 2017-09-01 10:14 | Internal Med Progress Note ---
Date of Encounter: 09/01/17 Time of Encounter: 10:12 - Assessment and plan (1) Bacteremia due to group B Streptococcus Current Visit: Yes Status: Acute Assessment and plan: From the right foot diabetic ulcer infection. Repeat blood cultures have been negative. Patient is currently receiving penicillin G and clindamycin. Infectious disease consult ordered. We will follow recommendations. Patient will most likely need at least 14 days of IV antibiotic therapy as he does not appear to have underlying osteomyelitis. (2) Osteomyelitis Current Visit: Yes Status: Suspected Assessment and plan: Bone scan does not appear to show any signs of osteomyelitis. No further investigations recommended by podiatry. Continue local wound care. Continue current antibiotics. Follow infectious disease recommendations. Qualifiers: Osteomyelitis type: other Osteomyelitis location: foot Laterality: right Qualified Code(s): M86.8X7 - Other osteomyelitis, ankle and foot (3) CAD (coronary artery disease) Current Visit: Yes Status: Chronic Assessment and plan: Continue Coreg, Lipitor, Entresto Qualifiers: Coronary Disease-Associated Artery/Lesion type: [place] artery [place] vs. transplanted heart: [place] heart Associated angina: without angina Qualified Code(s): I25.10 - Atherosclerotic heart disease of [place] coronary artery without angina pectoris (4) Diabetes type 2, uncontrolled Current Visit: Yes Status: Chronic Assessment and plan: Blood sugars elevated this morning. Will place patient on long-acting insulin in addition to sliding scale coverage. Qualifiers: Diabetes mellitus senior living insulin use: unspecified senior living insulin use status Diabetes mellitus complication status: with kidney complications Diabetes mellitus complication detail: with chronic kidney disease Chronic kidney disease stage: stage 3 (moderate) Qualified Code(s): E11.22 - Type 2 diabetes mellitus with diabetic chronic kidney disease; E11.65 - Type 2 diabetes mellitus with hyperglycemia; E11.65 - Type 2 diabetes mellitus with hyperglycemia; E11.65 - Type 2 diabetes mellitus with hyperglycemia; E11.65 - Type 2 diabetes mellitus with hyperglycemia; N18.3 - Chronic kidney disease, stage 3 (moderate); N18.3 - Chronic kidney disease, stage 3 (moderate) (5) CKD (chronic kidney disease) Current Visit: Yes Status: Chronic Assessment and plan: renal function improved. Continue to monitor renal function while patient is receiving antibiotics. Qualifiers: Chronic kidney disease stage: stage 3 (moderate) Qualified Code(s): N18.3 - Chronic kidney disease, stage 3 (moderate) (6) CHF (congestive heart failure) Current Visit: Yes Status: Chronic Assessment and plan: Not in acute exacerbation. Continue home medications Qualifiers: Heart failure type: systolic Heart failure chronicity: chronic Qualified Code(s): I50.22 - Chronic systolic (congestive) heart failure (7) Acute bronchitis Current Visit: Yes Status: Acute Assessment and plan: Patient appears to be developing acute bacterial bronchitis. Will send sputum for culture. He does have wheezing. We will place him on bronchodilators. Also add azithromycin. Qualifiers: Bronchitis organism: unspecified organism Qualified Code(s): J20.9 - Acute bronchitis, unspecified (8) DVT prophylaxis Current Visit: No Status: Acute Assessment and plan: With subcutaneous heparin - Time Spent With Patient Total time spent is greater than 50% in coordination of care (as documented) at patient's floor/unit and/or counseling patient: - Subjective Interval history: Patient complains of increased cough with yellow sputum. Was unable to sleep last night because of this. Was started on Robitussin with no symptoms and improvement in cough. Denies any hemoptysis. - Constitutional Vitals: Temp Pulse Resp BP Pulse Ox 98.9 F 73 18 149/74 97 09/01/17 07:50 09/01/17 07:50 09/01/17 08:34 09/01/17 07:50 09/01/17 08:34 General appearance: Present: cooperative, A&O X 3, answers questions appropriately - Respiratory Respiratory exam: Present: prolonged expiratory phase, wheezes. Absent: accessory muscle use, rales, rhonchi - GI/Abdominal GI/Abdominal exam: Present: normal bowel sounds, soft, no peritoneal signs. Absent: distended, tenderness - Extremities Exam Extremities exam: Present: warm, radial pulses palpable and symmetrical. Absent : calf tenderness, cyanotic, pedal edema - Neurological Exam Neurological exam: Present: CN II-XII intact, oriented X3, no focal deficits, strengths equal and symetr throughout. Absent: facial droop, speech deficit Internal Medicine: Result - Labs CBC & Chem 7: 09/01/17 00:56 09/01/17 00:56 Labs: Short CBC 09/01/17 Range/Units 00:56 WBC 3.6 L (4.3-11.1) K/mcL Hgb 9.6 L (12.9-16.9) g/dL Hct 29.8 L (37.5-50.1) % Plt Count 139 L (140-400) K/mcL Neutrophils # 2.2 (1.6-8.9) K/mcL BMP 09/01/17 00:56 Sodium 138 Potassium 4.4 Chloride 105 Carbon Dioxide 28 BUN 36 H Creatinine 1.10 Glucose 129 H Calcium 8.1 L Consult Discharge Plan - Plan Referrals: Tha Dos Santos Jr, MD [Primary Care Provider] -
[2017-09-01] MEDS: Azithromycin 250 MG TABLET PO SCH (11:34)
[2017-09-01] MEDS: rOPINIRole 1 MG TABLET PO SCH (20:15)
[2017-09-01] MEDS ORDERED: Insulin DETEMIR 100 UNIT/ML X5UNITS SQ SCH (21:00)
[2017-09-02] MEDS: Penicillin G Potassium 4,000,000 UNIT in D5% in Water 100 ML IVPB SCH ×4 (00:11→12:01)
[2017-09-02 05:19] LABS: Basophils % 0.9 %; Eosinophils # 0.1 K/mcL (0.0-0.6); Eosinophils % 2.6 %; Hematocrit 28.4 % (37.5-50.1); Hemoglobin 9.2 g/dL (12.9-16.9); Immature Granulocytes % 1.4 % (0-4); Lymphocytes # 0.9 K/mcL (0.6-4.6); Lymphocytes % 25.2 %; Mean Corpuscular HGB Conc 32.4 g/dL (31.6-35.5); Mean Corpuscular Hemoglobin 28.9 pg (28.0-33.3); Mean Corpuscular Volume 89.3 fL (83.0-100.0); Mean Platelet Volume 10.4 fL (9.4-12.4); Monocytes # 0.5 K/mcL (0.0-1.3); Monocytes % 12.9 %; Platelet Count 176 K/mcL (140-400); Red Blood Count 3.18 M/mcL (4.19-5.50); Red Cell Distribution Width 14.6 % (11.5-14.5)
[2017-09-02 05:23] LABS: BUN/Creatinine Ratio 29 (6-26); Blood Urea Nitrogen 29 mg/dL (6-20); Calcium 8.1 mg/dL (8.6-10.3); Carbon Dioxide 28 mEq/L (23-29); Chloride 107 mEq/L (98-107); Glucose 225 mg/dL (70-105); Osmolality,Calculated 297 (280-300); Sodium 137 mEq/L (136-145); eGFR For African Americans > 60 (> 60); eGFR For Non-African Americans > 60 (> 60)
[2017-09-02] MEDS: *HR* Heparin 5,000 UNIT/ML VIAL SQ SCH (05:52)
[2017-09-02 05:55] LABS: Anisocytosis 1+ (Not Present); Platelet Estimate Normal (Normal); Reactive Lymphocytes Present (Not Present)
[2017-09-02] MEDS: Insulin LISPRO 300 UNITS/3 ML VIAL SQ SCH ×2 (08:34→12:04)
[2017-09-02] MEDS: Azithromycin 250 MG TABLET PO SCH (08:34)
[2017-09-02] MEDS: Lactobacillus 1 EACH CAP.SPRINK PO SCH (08:34)
[2017-09-02] MEDS: SACUBITRIL/VALSARTAN 97/103 MG TABLET PO SCH (08:34)
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
[2017-09-02] MEDS: METANX PO SCH (10:19)
--- NOTE | 2017-09-02 11:30 | Discharge Summary ---
- NOTES TO OUTPATIENT PROVIDER Notes to Outpatient Provider: Patient admitted with strep group B bacteremia related to right foot wound infection. Treated with IV antibiotics. No signs of osteomyelitis. We will complete 14 day intravenous antibiotic course with penicillin. Mild hyperkalemia. Will need close monitoring. Recheck labs on Tuesday. Orders not resulted at time of discharge: Pending orders 08/30/17 01:55 Culture,Anaerobic [RM] Routine 08/30/17 10:38 Culture,Blood [BC] Routine Date of Encounter: 09/02/17 Time of Encounter: 11:27 - Discharge Diagnosis (1) Bacteremia due to group B Streptococcus Priority: Primary Status: Acute (2) Osteomyelitis Priority: Secondary Status: Suspected Qualifiers: Osteomyelitis type: other Osteomyelitis location: foot Laterality: right Qualified Code(s): M86.8X7 - Other osteomyelitis, ankle and foot (3) CAD (coronary artery disease) Priority: Secondary Status: Chronic Qualifiers: Coronary Disease-Associated Artery/Lesion type: [place] artery [place] vs. transplanted heart: [place] heart Associated angina: without angina Qualified Code(s): I25.10 - Atherosclerotic heart disease of [place] coronary artery without angina pectoris (4) Diabetes type 2, uncontrolled Priority: Secondary Status: Chronic Qualifiers: Diabetes mellitus [facility] insulin use: unspecified extermination inspector insulin use status Diabetes mellitus complication status: with kidney complications Diabetes mellitus complication detail: with chronic kidney disease Chronic kidney disease stage: stage 3 (moderate) Qualified Code(s): E11.22 - Type 2 diabetes mellitus with diabetic chronic kidney disease; E11.65 - Type 2 diabetes mellitus with hyperglycemia; E11.65 - Type 2 diabetes mellitus with hyperglycemia; E11.65 - Type 2 diabetes mellitus with hyperglycemia; E11.65 - Type 2 diabetes mellitus with hyperglycemia; N18.3 - Chronic kidney disease, stage 3 (moderate); N18.3 - Chronic kidney disease, stage 3 (moderate) (5) CKD (chronic kidney disease) Priority: Secondary Status: Chronic Qualifiers: Chronic kidney disease stage: stage 3 (moderate) Qualified Code(s): N18.3 - Chronic kidney disease, stage 3 (moderate) (6) CHF (congestive heart failure) Priority: Secondary Status: Chronic Qualifiers: Heart failure type: systolic Heart failure chronicity: chronic Qualified Code(s): I50.22 - Chronic systolic (congestive) heart failure (7) Acute bronchitis Priority: Secondary Status: Acute Qualifiers: Bronchitis organism: unspecified organism Qualified Code(s): J20.9 - Acute bronchitis, unspecified (8) DVT prophylaxis Priority: Secondary Status: Acute Hospital course: Mr. Lyon is a 57 year old male Patient with history of diabetes mellitus type 2 , who was admitted with strep group B bacteremia related to right foot diabetic ulcer/wound infection. Blood cultures drawn in the ER the previous day were positive for group B streptococci. Patient was started on treatment with IV Zosyn. Podiatry was consulted due to possible osteomyelitis on foot CT. Patient then underwent foot x-ray and bone scan which did not show any signs of osteomyelitis. Repeat blood cultures have been negative. Infectious disease was consulted and patient has been switched to penicillin G. He will need 14 day antibiotic course. He will be placed on continuous dosing of intravenous penicillin. Patient also had symptoms of acute bronchitis and will finish a short course of treatment with azithromycin. He has also been prescribed albuterol inhaler empirically for shortness of breath and wheezing. Patient's potassium levels have been slowly sliding up likely due to use of Entresto while receiving penicillin G potassium. We will recheck his basic panel on Tuesday. He may need Kayexalate if his potassium levels continued to rise up. He did have mild acute kidney injury on presentation and this has since resolved. He will follow up with infectious disease and podiatry after discharge for further management. Discharge discussed with: patient, nurse, social work, product development consultant - Time Spent with Patient Total time spent providing and/or coordinating discharge services: Greater than 30 minutes (40 min) - Discharge Medications Prescriptions: Albuterol Sulfate [Albuterol Inhaler] 2 puff IH Q4HR PRN #1 hfa.aer.ad PRN Reason: Shortness Of Breath Azithromycin [Zithromax] 500 mg PO DAILY #3 tablet Lactobacillus [Culturelle] 1 each PO BID #28 cap.sprink Penicillin G Potassium [Pfizerpen] 12,000,000 unit IVPB DAILY #12 vial Home Medications: Clopidogrel [Plavix] 75 mg PO DAILY 02/10/15 [History] Aspirin [Lo-Dose Aspirin EC] 81 mg PO DAILY 01/01/16 [History] Magnesium Oxide [Magnesium] 500 mg PO BID 01/01/16 [History] Ropinirole HCl [Requip] 1 mg PO HS 01/01/16 [History] Bumetanide [Bumex] 1 mg PO QPM 02/09/16 [History] Benzonatate [Tessalon] 200 mg PO TID PRN #21 capsule 08/29/17 [Rx] Insulin Pump Cartridge [Insulin Pump] 1 device SQ AD 08/29/17 [History] Spironolactone [Aldactone] 25 mg PO DAILY 08/29/17 [History] Atorvastatin Calcium [Lipitor] 80 mg PO .EVERY OTHER DAY 08/30/17 [History] Carvedilol [Coreg] 37.5 mg PO BID 08/30/17 [History] Dulaglutide [Trulicity] 0.75 mg SQ QWEEK 08/30/17 [History] Levomefolate/B6/B12/Algal Oil [Metanx Capsule] 1 tab PO BID 08/30/17 [History] Sacubitril/Valsartan [Entresto 97 mg-103 mg Tablet] 1 tab PO BID 08/30/17 [ History] Albuterol Sulfate [Albuterol Inhaler] 2 puff IH Q4HR PRN #1 hfa.aer.ad 09/02/17 [Rx] Azithromycin [Zithromax] 500 mg PO DAILY #3 tablet 09/02/17 [Rx] Lactobacillus [Culturelle] 1 each PO BID #28 cap.sprink 09/02/17 [Rx] Penicillin G Potassium [Pfizerpen] 12,000,000 unit IVPB DAILY #12 vial 09/02/17 [Rx] Allergies/Adverse Reactions: 3 Allergy/AdvReac Type Severity Reaction Status Date / Time chicken derived Allergy See Verified 08/29/17 22:51 Comments Date of admission: 08/30/17 00:45 Primary care physician: Tha Dos Santos Jr, MD Consults: 08/30/17 00:49 Consult to Podiatry [CONS] Routine Consulting Provider: Podiatry [facility] Reason for Consult: Known to you. Right foot osteo Call Completed: No 08/31/17 17:01 Consult to Infectious Diseases [CONS] Routine Consulting Provider: Infectious Disease [facility] Reason for Consult: Strep Group B bacteremia/ right foot ulcer infection Call Completed: Yes 09/01/17 12:00 Consult to Nursing Project Coordinator [CONS] Routine Reason for SW Consult: discharge planning 09/01/17 13:05 Consult to Invasive Line Access Team [CONS] Routine Reason for Consult: IV antibiotics Line Type: Midline PICC line indications: prison Med/Antibiotic Time Notified: 13:05 Call Completed: Yes Discharging clinician: Paul Aguirre Anticipated date of discharge: 09/02/17 - Constitutional Vitals: Temp Pulse Resp BP Pulse Ox 98.3 F 81 16 148/83 99 09/02/17 06:45 09/02/17 06:45 09/02/17 06:45 09/02/17 06:45 09/02/17 06:45 General appearance: Present: cooperative, A&O X 3, answers questions appropriately - Neck Neck exam general surgery: Present: supple, trachea midline. Absent: lymphadenopathy - Respiratory Respiratory exam: Present: CTAB. Absent: accessory muscle use, rales, rhonchi, wheezes - Cardiovascular Cardiovascular exam: Present: RRR, +S1, +S2. Absent: diastolic murmur, gallop, rubs, systolic murmur - GI/Abdominal GI/Abdominal exam: Present: normal bowel sounds, soft, no peritoneal signs. Absent: distended, tenderness - Extremities Exam Extremities exam: Present: warm, radial pulses palpable and symmetrical. Absent : calf tenderness, cyanotic, pedal edema Additional comments: right great toe wound bandaged - Neurological Exam Neurological exam: Present: CN II-XII intact, oriented X3, no focal deficits. Absent: facial droop, speech deficit - Skin Skin exam: Present: dry, intact - Patient Status Disposition: Home Health Service Condition: Good Functional capacity at discharge: uses cane/walker Overall status at discharge: patient is progressing back to baseline - Discharge Instructions Instructions: Diabetes Mellitus Type 2 in Adults (DC) Follow Up With: Tha Dos Santos Jr, MD [Primary Care Provider] - 09/07/17 10:00 am Stu Boyd DPM [Partnered Physician] - 09/09/17 10:30 am Roberto Holly MD [Partnered Physician] - 09/14/17 3:00 pm Additional Instructions: IF SYMPTOMS RETURN OR WORSEN, OR YOU DEVELOP FEVER OR CHILLS, PLEASE CALL YOUR PCP, 911 OR GO TO THE NEAREST EMERGENCY ROOM. PLEASE WATCH THE SIT CAREFULLY FOR CONCERNS. KEEP SITE CLEAN AND DRY AT ALL TIMES. COMPLETE DRESSING CHANGES INSTRUCTED. - Diet and Activity Activity: increase activity as tolerated Diet: diabetic diet, low fat, low cholesterol, low salt diet
[2017-09-02 11:36] VITALS: BP 149/76
--- NOTE | 2017-09-02 11:37 | Physician Discharge Referral ---
Home Health/Hosp Referral Info Transfer to: Home Health Provider in Charge Post Discharge: PCP - Diagnosis (1) Bacteremia due to group B Streptococcus Priority: Primary Status: Acute (2) Osteomyelitis Priority: Secondary Status: Suspected (3) CAD (coronary artery disease) Priority: Secondary Status: Chronic (4) Diabetes type 2, uncontrolled Priority: Secondary Status: Chronic (5) CKD (chronic kidney disease) Priority: Secondary Status: Chronic (6) CHF (congestive heart failure) Priority: Secondary Status: Chronic (7) Acute bronchitis Priority: Secondary Status: Acute (8) DVT prophylaxis Priority: Secondary Status: Acute - Respiratory Orders Smoking Cessation: Smoking cessation has been advised. For more information, call the [place] Tobacco Quit Line at 4-223-GLCM-NOW. - Diet/Nutrition Diet/Nutrition Orders: Cardiac, No Concentrated Sweets (diabetic) - Activity Activity Orders: Ambulate - Services Needed Following services are medically necessary services: Nursing, Home Infusion Home Care Orders: CBC, basic panel on 09/05/17, 09/12/17 - Transfer Medications Prescriptions: Albuterol Sulfate [Albuterol Inhaler] 2 puff IH Q4HR PRN #1 hfa.aer.ad PRN Reason: Shortness Of Breath Azithromycin [Zithromax] 500 mg PO DAILY #3 tablet Lactobacillus [Culturelle] 1 each PO BID #28 cap.sprink Penicillin G Potassium [Pfizerpen] 12,000,000 unit IVPB DAILY #12 vial Home Medications: Clopidogrel [Plavix] 75 mg PO DAILY 02/10/15 [History] Aspirin [Lo-Dose Aspirin EC] 81 mg PO DAILY 01/01/16 [History] Magnesium Oxide [Magnesium] 500 mg PO BID 01/01/16 [History] Ropinirole HCl [Requip] 1 mg PO HS 01/01/16 [History] Bumetanide [Bumex] 1 mg PO QPM 02/09/16 [History] Benzonatate [Tessalon] 200 mg PO TID PRN #21 capsule 08/29/17 [Rx] Insulin Pump Cartridge [Insulin Pump] 1 device SQ AD 08/29/17 [History] Spironolactone [Aldactone] 25 mg PO DAILY 08/29/17 [History] Atorvastatin Calcium [Lipitor] 80 mg PO .EVERY OTHER DAY 08/30/17 [History] Carvedilol [Coreg] 37.5 mg PO BID 08/30/17 [History] Dulaglutide [Trulicity] 0.75 mg SQ QWEEK 08/30/17 [History] Levomefolate/B6/B12/Algal Oil [Metanx Capsule] 1 tab PO BID 08/30/17 [History] Sacubitril/Valsartan [Entresto 97 mg-103 mg Tablet] 1 tab PO BID 08/30/17 [ History] Albuterol Sulfate [Albuterol Inhaler] 2 puff IH Q4HR PRN #1 hfa.aer.ad 09/02/17 [Rx] Azithromycin [Zithromax] 500 mg PO DAILY #3 tablet 09/02/17 [Rx] Lactobacillus [Culturelle] 1 each PO BID #28 cap.sprink 09/02/17 [Rx] Penicillin G Potassium [Pfizerpen] 12,000,000 unit IVPB DAILY #12 vial 09/02/17 [Rx] Allergies/Adverse Reactions: 3 Allergy/AdvReac Type Severity Reaction Status Date / Time chicken derived Allergy See Verified 08/29/17 22:51 Comments Certification: Further, I certify that my clinical findings support that this patient is homebound (i.e. absences from home require considerable and taxing effort and are for medical reasons or yazdanism services or infrequently or short duration when for other reasons) because: Homebound Reason: Patient requires assistance of a person or device to safely leave home (Patient with right foot diabetic ulcer infection requiring intravenous antibiotics) Attestation: My signature below is to certify that this patient is under my care and that I, or nurse practitioner, or a physician's city carrier assistant working with me, has a face-to -face encounter with this patient.
--- NOTE | 2017-09-02 13:05 | Podiatry Progress Note ---
Date of Encounter: 09/02/17 Time of Encounter: 12:00 - Assessment and Plan (1) Diabetes type 2, controlled Status: Acute Qualifiers: Diabetes mellitus roasterman insulin use: with intermediate use Diabetes mellitus complication status: with hyperglycemia Qualified Code(s): E11.65 - Type 2 diabetes mellitus with hyperglycemia; Z79.4 - roasterman (current) use of insulin (2) Toe ulcer due to DM Status: Acute Jennings stage 2 possible stage 3 ulceration of right great toe Plan: Admit for IV antibiotics- ID managing- had picc placement Positive blood cultures on admission +GBS Wound cultures obtained- +GBS CT scan obtained- Subtle cortical irregularity along the plantar aspect of the 1st distal 3 phase bone scan obtained with minimal suspicion of osteo Assessed wound at bedside, flushed with saline Improvement in appearance- no clinical signs of infection noted at this time. Shallow healing ulceration Healthy granulation tissue noted to base To assessment there is no probe to underlying structures noted at this time No odor, no fluctuance Cleansed with saline, painted with betadine, CA alginate and dry dressing applied Continue calcium alginate applied to wound due to drainage has supplies for home use Would like patient to have diabetic cast boot on discharge Limit weight bearing for healing Tight glucose control to limit complications Follow up in wound care center with 1 week after discharge. at bedside, verbalizes understanding Bone Scan Nuclear Medicine 08/30/17 16:05 IMPRESSION: Findings are most suggestive of soft tissue inflammation of the right great toe. No significant delayed uptake to suggest active osteomyelitis. D/ / Khanh Ocampo MD / Khanh Ocampo MD Interpreting Provider: Khanh Ocampo MD dressing changes Foot CT 08/29/17 22:59 IMPRESSION: Focal soft tissue ulcerations measuring 4 mm along the plantar medial aspect of the 1st digit with underlying infiltration of the subcutaneous fat and skin thickening consistent with cellulitis. Cellulitis extends into the medial/dorsal aspect of the foot. No evidence of discrete drainable fluid collection or soft tissue gas. Subtle cortical irregularity along the plantar aspect of the 1st distal phalanx may represent findings of osteomyelitis. MRI would be more sensitive. D/ / 08/30/2017 07:24:18 Moncho Abad MD / silverio Interpreting Provider: Moncho Abad MD Foot X-Ray 08/30/17 10:19 IMPRESSION: Soft tissue swelling of the great toe with plantar ulcer. No subcutaneous gas or osseous destruction identified. If there remains concern for osteomyelitis, MRI is recommended. D/ / Ambrose Owen / Ambrose Owen Interpreting Provider: Ambrose Owen Qualifiers: Diabetes mellitus type: due to underlying condition Laterality: right Non -pressure ulcer stage: with fat layer exposed Qualified Code(s): E08.621 - Diabetes mellitus due to underlying condition with foot ulcer; L97.512 - Non- pressure chronic ulcer of other part of right foot with fat layer exposed; L97.512 - Non-pressure chronic ulcer of other part of right foot with fat layer exposed; L97.512 - Non-pressure chronic ulcer of other part of right foot with fat layer exposed; L97.512 - Non-pressure chronic ulcer of other part of right foot with fat layer exposed (3) Skin tear Status: Acute There is a scabbed skin tear of the right skin with surrounding ecchymosis without clinical signs of infection Cleansed with saline, intact and appears to be healing Allevyn applied for protection Change Q72 hours Subjective Interval history: Patient admitted to [facility] for IV anitbiotics and +GBS blood cultures. Patient has been receiving IV anitiotics and local wound care. Patient underwent bedside debridement of wound on 08/31. at bedside, states he is pending discharge today. Home on 6 weeks IV antibiotic therapy per ID team. Patient resting comfortably, dressing intact to foot and tabares. No drainage. Denies any fevers, chills, n/v or flu like symptoms. Objective - Vital Signs Vital Signs: Vital Signs Temp Pulse Resp BP Pulse Ox 09/02/17 09:56 98.5 F 74 16 149/76 97 09/02/17 06:45 98.3 F 81 16 148/83 99 09/02/17 03:59 98.0 F 77 16 153/81 98 09/02/17 00:14 98.6 F 76 16 154/95 98 09/01/17 19:14 98.2 F 75 16 152/85 99 09/01/17 15:49 98.2 F 92 18 151/88 100 Intake and Output 09/01/17 09/02/17 09/02/17 23:59 07:59 15:59 Intake Total 200 / 200 200 / 200 100 / 100 Balance 200 / 200 200 / 200 100 / 100 Intake: IV Fluids 200 / 200 200 / 200 100 / 100 Pfizerpen 4,000,000 UNIT In 200 / 200 200 / 200 100 / 100 Dextrose 5% 100 ML @ 100 mls/hr IVPB Q4HR [facility] Rx#:[id number] Other: Blood Glucose* 206 191 236 - Exam Exam: General Examination: CONSTITUTIONAL: Alert, oriented, in no acute distress, non-toxic. EXTREMITIES: CFT 3 seconds all toes. Edema +1 and pedal pulses palpable. SKIN: Ulceration to plantar aspect right great toe, much improvement in appearance. 2cmx2.5cmx0.1cm without drainage. No clinical signs of infection. Minimal edema, warmth or erythema. No odor. Shallow. Healing ulceration. There continues to be a skin tear to the right tabares, scabbing intact, no clinical signs of infection noted. NEUROLOGIC: Absent sensation to light or moderate touch - Lab Result Diagrams: 09/02/17 04:00 09/02/17 04:00 Labs: Abnormal lab results WBC 3.5 K/mcL (4.3-11.1) L 09/02/17 04:00 RBC 3.18 M/mcL (4.19-5.50) L 09/02/17 04:00 Hgb 9.2 g/dL (12.9-16.9) L 09/02/17 04:00 Hct 28.4 % (37.5-50.1) L 09/02/17 04:00 RDW 14.6 % (11.5-14.5) H 09/02/17 04:00 Reactive Lymphocytes Present (Not Present) A 09/02/17 04:00 Large Platelets Present (Not Present) A 08/31/17 00:35 Anisocytosis 1+ (Not Present) A 09/02/17 04:00 ESR 46 mm/hr (0-10) H 08/29/17 23:09 BUN 29 mg/dL (6-20) H 09/02/17 04:00 BUN/Creatinine Ratio 29 (6-26) H 09/02/17 04:00 Glucose 225 mg/dL (70-105) H 09/02/17 04:00 POC Glucose 206 mg/dL (70-99) H 09/01/17 19:34 Hemoglobin A1c 12.1 % (-5.6) H 08/30/17 04:49 Calcium 8.1 mg/dL (8.6-10.3) L 09/02/17 04:00 Magnesium 2.7 mg/dL (1.6-2.6) H 08/30/17 04:49 Troponin I 0.05 ng/mL (< 0.04) H* 08/30/17 10:41 C-Reactive Protein 97 mg/L (Less than 10) H 08/29/17 22:58 Microbiology, Last 48 Hours 08/30/17 01:55 Anaerobic Culture - Preliminary Right Foot At this time, no anaerobic growth is present. The culture will be finalized after 5 days of incubation. 08/30/17 10:38 Blood Culture - Preliminary Peripheral Venipuncture No growth. 08/30/17 10:41 Blood Culture - Preliminary Peripheral Venipuncture No growth. 08/30/17 01:55 Wound Culture - Final Right Foot Strep agalactiae - (Group B) Consult Discharge Plan - Plan Instructions: Diabetes Mellitus Type 2 in Adults (DC) Additional Instructions: IF SYMPTOMS RETURN OR WORSEN, OR YOU DEVELOP FEVER OR CHILLS, PLEASE CALL YOUR PCP, 911 OR GO TO THE NEAREST EMERGENCY ROOM. PLEASE WATCH THE SIT CAREFULLY FOR CONCERNS. KEEP SITE CLEAN AND DRY AT ALL TIMES. COMPLETE DRESSING CHANGES INSTRUCTED. Referrals: Tha Dos Santos Jr, MD [Primary Care Provider] - 09/07/17 10:00 am Stu Boyd DPM [Partnered Physician] - 09/09/17 10:30 am Roberto Holly MD [Partnered Physician] - 09/14/17 3:00 pm Prescriptions: Albuterol Sulfate [Albuterol Inhaler] 2 puff IH Q4HR PRN #1 [id number] PRN Reason: Shortness Of Breath Azithromycin [Zithromax] 500 mg PO DAILY #3 tablet Lactobacillus [Culturelle] 1 each PO BID #28 cap.sprink Penicillin G Potassium [Pfizerpen] 12,000,000 unit IVPB DAILY #12 vial
== END 2017-09-02 14:44 | disposition home health service (06) | DRG 638 ==
LOC: EMEROO 22:47 → 3NENU 22:47 → SUATTDRO 08-30 00:45 → 3NENU 08-30 00:51
PROVIDERS: ADMIT Internal Medicine; ATTEND Internal Medicine

== ENCOUNTER 2019-06-14 00:22 | Observation (INO) ==
[2019-06-14] MEDS ORDERED: Naloxone 0.4 MG/ML INJ IVP PRN (02:54)
[2019-06-14] MEDS: 0.9 % Sodium Chloride 1,000 ML IVC SCH ×2 (05:17→17:45)
[2019-06-14] MEDS ORDERED: D5% in Water 1,000 ML IVC PRN (05:18)
[2019-06-14] MEDS ORDERED: Dextrose Gel 15 GM/37.5 ML TUBE PO PRN ×2 (05:18)
[2019-06-14] MEDS ORDERED: *HR* Dextrose 50 % in Water (Syg) 50 ML SYRINGE IVP PRN (05:18)
[2019-06-14 05:34] LABS: Basophils % 0.5 %; Eosinophils # 0.2 K/mcL (0.0-0.6); Eosinophils % 3.9 %; Hematocrit 37.1 % (37.5-50.1); Hemoglobin 12.4 g/dL (12.9-16.9); Immature Granulocytes % 0.3 % (0-4); Lymphocytes # 0.7 K/mcL (0.6-4.6); Lymphocytes % 12.5 %; Mean Corpuscular HGB Conc 33.4 g/dL (31.6-35.5); Mean Corpuscular Hemoglobin 27.3 pg (28.0-33.3); Mean Corpuscular Volume 81.7 fL (83.0-100.0); Mean Platelet Volume 10.4 fL (9.4-12.4); Monocytes # 0.6 K/mcL (0.0-1.3); Monocytes % 10.3 %; Neutrophils # 4.2 K/mcL (1.6-8.9); Platelet Count 177 K/mcL (140-400); Red Blood Count 4.54 M/mcL (4.19-5.50); Red Cell Distribution Width 14.7 % (11.5-14.5); Segmented Neutrophils % 72.5 %; White Blood Count 5.8 K/mcL (4.3-11.1)
[2019-06-14 05:43] LABS: INR 1.1
[2019-06-14 06:14] LABS: Albumin 3.2 g/dL (3.5-5.7); Albumin/Globulin Ratio 0.8 (1.1-2.2); Bilirubin,Total 0.5 mg/dL (0.3-1.0); Globulin 3.9 g/dL (2.4-3.5); Potassium 4.2 mEq/L (3.5-5.1); Total Protein 7.1 g/dL (6.4-8.9)
[2019-06-14] MEDS: *HR* Heparin 5,000 UNIT/ML VIAL SQ SCH ×3 (06:22→21:25)
[2019-06-14 07:42] LABS: Adenovirus Not Detected (Not Detect); Coronavirus 229E Not Detected (Not Detect); Coronavirus HKU1 Not Detected (Not Detect); Coronavirus NL63 Not Detected (Not Detect); Coronavirus OC43 Not Detected (Not Detect); Human Metapneumovirus Not Detected (Not Detect); Human Rhinovirus/Enterovirus Not Detected (Not Detect)
[2019-06-14 07:43] LABS: Bordetella Pertussis Not Detected (Not Detect); Chlamydophila pneumoniae Not Detected (Not Detect); Influenza B Not Detected (Not Detect); Mycoplasma pneumoniae Not Detected (Not Detect); Parainfluenza Virus 1 Not Detected (Not Detect); Parainfluenza Virus 2 Not Detected (Not Detect); Parainfluenza Virus 3 Not Detected (Not Detect); Parainfluenza Virus 4 Not Detected (Not Detect); Respiratory Syncytial Virus Not Detected (Not Detect)
[2019-06-14 07:47] LABS: Influenza A Subtype 2009 H1 DETECTED (Not Detect)
[2019-06-14] MEDS: carvediloL 25 MG TABLET PO SCH ×2 (09:12→17:45)
[2019-06-14] MEDS: Insulin LISPRO 300 UNITS/3 ML VIAL SQ SCH ×3 (09:12→17:46)
[2019-06-14] MEDS: Aspirin Enteric Coated 81 MG Tablet PO SCH (09:14)
[2019-06-14] MEDS ORDERED: rOPINIRole 1 MG TABLET PO SCH (21:00)
[2019-06-15] MEDS: 0.9 % Sodium Chloride 1,000 ML IVC SCH (01:19)
[2019-06-15] MEDS: *HR* Heparin 5,000 UNIT/ML VIAL SQ SCH ×2 (05:37→14:31)
[2019-06-15 06:25] LABS: Hematocrit 33.4 % (37.5-50.1); Hemoglobin 11.2 g/dL (12.9-16.9); Mean Corpuscular HGB Conc 33.5 g/dL (31.6-35.5); Mean Corpuscular Hemoglobin 27.9 pg (28.0-33.3); Mean Corpuscular Volume 83.3 fL (83.0-100.0); Mean Platelet Volume 10.4 fL (9.4-12.4); Platelet Count 161 K/mcL (140-400); Red Blood Count 4.01 M/mcL (4.19-5.50); Red Cell Distribution Width 14.8 % (11.5-14.5); White Blood Count 3.5 K/mcL (4.3-11.1)
[2019-06-15 06:53] LABS: Albumin 3.2 g/dL (3.5-5.7); Albumin/Globulin Ratio 0.9 (1.1-2.2); Bilirubin,Total 0.5 mg/dL (0.3-1.0); Calcium 8.5 mg/dL (8.6-10.3); Globulin 3.7 g/dL (2.4-3.5); Magnesium 2.8 mg/dL (1.6-2.6); Potassium 4.8 mEq/L (3.5-5.1); Total Protein 6.9 g/dL (6.4-8.9)
[2019-06-15] MEDS: Aspirin Enteric Coated 81 MG Tablet PO SCH (08:31)
[2019-06-15] MEDS: carvediloL 25 MG TABLET PO SCH ×2 (08:31→16:53)
[2019-06-15] MEDS: Insulin LISPRO 300 UNITS/3 ML VIAL SQ SCH ×3 (08:32→17:00)
[2019-06-15] MEDS ORDERED: Insulin DETEMIR 100 UNIT/ML X5UNITS SQ SCH (09:00)
[2019-06-15] MEDS ORDERED: Albumin 25% 25gram/100mL 25 GM/100 ML IV.SOLN IVPB ONE ×2 (10:30→16:22)
[2019-06-15] MEDS ORDERED: 0.9 % Sodium Chloride 500 ML IVC SCH (11:00)
[2019-06-15] MEDS ORDERED: Insulin DETEMIR 100 UNIT/ML X5UNITS SQ ONE (11:00)
[2019-06-15 18:50] VITALS: BP 142/79
[2019-06-15] MEDS ORDERED: Insulin LISPRO 300 UNITS/3 ML VIAL SQ SCH (21:00)
== END 2019-06-15 19:05 | disposition home or self-care (01) ==
LOC: 2ANU → SUATTDRO 02:26
PROVIDERS: ADMIT Internal Medicine; ATTEND Internal Medicine

== ENCOUNTER 2020-03-13 15:07 | Observation (INO) ==
[2020-03-13 15:55] LABS: Basophils % 0.8 %; Eosinophils # 0.1 K/mcL (0.0-0.6); Eosinophils % 1.9 %; Hematocrit 22.5 % (37.5-50.1); Hemoglobin 6.6 g/dL (12.9-16.9); Immature Granulocytes % 0.2 % (0-4); Lymphocytes # 0.5 K/mcL (0.6-4.6); Mean Corpuscular HGB Conc 29.3 g/dL (31.6-35.5); Mean Corpuscular Hemoglobin 26.2 pg (28.0-33.3); Mean Corpuscular Volume 89.3 fL (83.0-100.0); Mean Platelet Volume 11.1 fL (9.4-12.4); Monocytes # 0.5 K/mcL (0.0-1.3); Monocytes % 9.6 %; Neutrophils # 3.7 K/mcL (1.6-8.9); Platelet Count 174 K/mcL (140-400); Red Blood Count 2.52 M/mcL (4.19-5.50); Red Cell Distribution Width 16.2 % (11.5-14.5); Segmented Neutrophils % 77.5 %; White Blood Count 4.8 K/mcL (4.3-11.1)
[2020-03-13 16:08] LABS: INR 1.5; Prothrombin Time 16.8 Seconds (9.4-12.1)
[2020-03-13 16:10] LABS: Activated Partial Thrombo Time 35.4 Seconds (26.0-36.0)
[2020-03-13 16:18] LABS: Calcium 8.5 mg/dL (8.6-10.3); Magnesium 2.7 mg/dL (1.6-2.6); Potassium 4.5 mEq/L (3.5-5.1); Troponin I 0.05 ng/mL (< 0.04)
[2020-03-13] MEDS ORDERED: 0.9 % Sodium Chloride 1,000 ML IVC ONE (16:19)
[2020-03-13] MEDS ORDERED: Insulin Regular, Human 100 UNIT/ML SQ ONE (16:26)
[2020-03-13] MEDS ORDERED: Pantoprazole 40 MG in 0.9 % Sodium Chloride 50 ML IVPB ONE (16:59)
[2020-03-13 17:00] LABS: VBG HCO3 28 mEq/L (21-27); VBG PCO2 44 mmHg (41-51); VBG PH 7.41 pH Units (7.32-7.42); VBG PO2 227 mmHg (25-50)
[2020-03-13] MEDS ORDERED: 0.9 % Sodium Chloride 1,000 ML ONE (17:14)
[2020-03-13] MEDS ORDERED: Ondansetron ODT 4 MG TAB.RAPDIS SL PRN (17:31)
[2020-03-13] MEDS ORDERED: Naloxone 0.4 MG/ML INJ IVP PRN (17:31)
[2020-03-13] MEDS ORDERED: D5% in Water 1,000 ML IVC PRN (17:31)
[2020-03-13] MEDS ORDERED: Acetaminophen 325 MG TABLET PO PRN (17:31)
[2020-03-13] MEDS ORDERED: *HR* Dextrose 50 % in Water (Vial) 50 ML VIAL IVP PRN (17:31)
[2020-03-13] MEDS ORDERED: Dextrose Gel 15 GM/37.5 ML TUBE PO PRN ×2 (17:31)
[2020-03-13 17:53] LABS: Adenovirus Not Detected (Not Detect); Bordetella Pertussis Not Detected (Not Detect); Chlamydophila pneumoniae Not Detected (Not Detect); Coronavirus 229E Not Detected (Not Detect); Coronavirus HKU1 Not Detected (Not Detect); Coronavirus NL63 Not Detected (Not Detect); Coronavirus OC43 Not Detected (Not Detect); Human Metapneumovirus Not Detected (Not Detect); Human Rhinovirus/Enterovirus Not Detected (Not Detect); Influenza A Subtype 2009 H1 Not Detected (Not Detect); Influenza B Not Detected (Not Detect); Mycoplasma pneumoniae Not Detected (Not Detect); Parainfluenza Virus 1 Not Detected (Not Detect); Parainfluenza Virus 2 Not Detected (Not Detect); Parainfluenza Virus 3 Not Detected (Not Detect); Parainfluenza Virus 4 Not Detected (Not Detect); Respiratory Syncytial Virus Not Detected (Not Detect); SARS-CoV-2 Not Detected (Not Detect)
[2020-03-13] MEDS ORDERED: 0.9 % Sodium Chloride 250 ML ONE ×2 (19:25→22:12)
[2020-03-13] MEDS: Insulin LISPRO 300 UNITS/3 ML VIAL SQ SCH (20:35)
[2020-03-14 04:16] LABS: Basophils # 0.1 K/mcL (0.0-0.2); Basophils % 1.2 %; Eosinophils # 0.1 K/mcL (0.0-0.6); Eosinophils % 2.2 %; Hematocrit 25.6 % (37.5-50.1); Hemoglobin 7.9 g/dL (12.9-16.9); Immature Granulocytes % 0.2 % (0-4); Lymphocytes # 0.5 K/mcL (0.6-4.6); Lymphocytes % 12.5 %; Mean Corpuscular HGB Conc 30.9 g/dL (31.6-35.5); Mean Corpuscular Hemoglobin 26.7 pg (28.0-33.3); Mean Corpuscular Volume 86.5 fL (83.0-100.0); Mean Platelet Volume 10.5 fL (9.4-12.4); Monocytes # 0.5 K/mcL (0.0-1.3); Monocytes % 11.3 %; Nucleated Red Blood Cells 0.5 /100 WBC (0); Platelet Count 173 K/mcL (140-400); Red Blood Count 2.96 M/mcL (4.19-5.50); Red Cell Distribution Width 15.8 % (11.5-14.5); Segmented Neutrophils % 72.6 %; White Blood Count 4.2 K/mcL (4.3-11.1)
[2020-03-14 04:19] LABS: INR 1.5; Prothrombin Time 17.5 Seconds (9.4-12.1)
[2020-03-14 04:37] LABS: Albumin/Globulin Ratio 0.9 (1.1-2.2); Bilirubin,Direct 0.3 mg/dL (0.0-0.2); Bilirubin,Indirect 0.4 mg/dL (0.0-1.0); Bilirubin,Total 0.7 mg/dL (0.3-1.0); Globulin 3.4 g/dL (2.4-3.5); Total Protein 6.4 g/dL (6.4-8.9)
[2020-03-14 04:48] LABS: Calcium 8.3 mg/dL (8.6-10.3); Magnesium 2.6 mg/dL (1.6-2.6); Phosphorous 4.3 mg/dL (2.7-4.5); Potassium 4.4 mEq/L (3.5-5.1); Troponin I 0.06 ng/mL (< 0.04)
[2020-03-14 05:03] LABS: Folate > 22.3 ng/mL (3.0-16.0); Vitamin B12 > 1500 pg/mL (250-1100)
[2020-03-14] MEDS: Pantoprazole 40 MG VIAL IVP SCH ×2 (05:48→16:52)
[2020-03-14] MEDS: Insulin LISPRO 300 UNITS/3 ML VIAL SQ SCH ×3 (08:17→16:52)
[2020-03-14] MEDS ORDERED: 0.9 % Sodium Chloride 1,000 ML IVC SCH (09:45)
[2020-03-14 10:36] LABS: Estimated Average Glucose 269 mg/dl
[2020-03-14] MEDS ORDERED: Iron Sucrose Complex 400 MG in 0.9 % Sodium Chloride 250 ML IVPB ONE (12:10)
[2020-03-14] MEDS ORDERED: Furosemide 40 MG/4 ML VIAL IVP ONE (14:00)
[2020-03-14] MEDS ORDERED: 0.9 % Sodium Chloride 250 ML ONE (14:02)
[2020-03-14] MEDS: carvediloL 25 MG TABLET PO SCH (16:51)
[2020-03-14] MEDS: Sacubitril/Valsartan 97/103 MG 1 TAB TABLET PO SCH (20:24)
[2020-03-14] MEDS: Magnesium Oxide 400 MG TABLET PO SCH (20:25)
[2020-03-14] MEDS ORDERED: Bumetanide 1 MG TABLET PO SCH (21:00)
[2020-03-14] MEDS ORDERED: rOPINIRole 1 MG TABLET PO SCH (21:00)
[2020-03-14] MEDS ORDERED: Insulin DETEMIR 100 UNIT/ML X5UNITS SQ SCH (21:00)
[2020-03-15 03:33] LABS: Basophils # 0.1 K/mcL (0.0-0.2); Eosinophils # 0.1 K/mcL (0.0-0.6); Eosinophils % 1.5 %; Hematocrit 28.8 % (37.5-50.1); Immature Granulocytes % 0.4 % (0-4); Lymphocytes # 0.6 K/mcL (0.6-4.6); Lymphocytes % 11.5 %; Mean Corpuscular HGB Conc 31.3 g/dL (31.6-35.5); Mean Corpuscular Hemoglobin 27.9 pg (28.0-33.3); Mean Corpuscular Volume 89.2 fL (83.0-100.0); Mean Platelet Volume 11.3 fL (9.4-12.4); Monocytes # 0.6 K/mcL (0.0-1.3); Monocytes % 11.5 %; Neutrophils # 3.9 K/mcL (1.6-8.9); Nucleated Red Blood Cells 0.4 /100 WBC (0); Platelet Count 183 K/mcL (140-400); Red Blood Count 3.23 M/mcL (4.19-5.50); Red Cell Distribution Width 15.8 % (11.5-14.5); Segmented Neutrophils % 74.1 %; White Blood Count 5.2 K/mcL (4.3-11.1)
[2020-03-15 03:49] LABS: Calcium 8.3 mg/dL (8.6-10.3); Potassium 4.7 mEq/L (3.5-5.1)
[2020-03-15] MEDS: Pantoprazole 40 MG VIAL IVP SCH (05:02)
[2020-03-15 07:50] VITALS: BP 161/86
[2020-03-15] MEDS: carvediloL 25 MG TABLET PO SCH (08:08)
[2020-03-15] MEDS: Insulin LISPRO 300 UNITS/3 ML VIAL SQ SCH (08:16)
[2020-03-15] MEDS: Magnesium Oxide 400 MG TABLET PO SCH (08:25)
[2020-03-15] MEDS: Sacubitril/Valsartan 97/103 MG 1 TAB TABLET PO SCH (08:26)
[2020-03-15] MEDS ORDERED: Aspirin Enteric Coated 81 MG Tablet PO SCH (09:00)
[2020-03-15] MEDS ORDERED: Bumetanide 1 MG TABLET PO SCH (09:00)
== END 2020-03-15 12:35 | disposition home or self-care (01) ==
LOC: EMEROOARM 15:07 → 3ANU 15:07 → SUATTDRO 18:09 → 3ANU 18:45
PROVIDERS: ADMIT Internal Medicine; ATTEND Internal Medicine
PROC: ENDOEBX (2020-03-14 12:55)

== ENCOUNTER 2020-04-08 15:42 | Inpatient (IN) ==
[2020-04-08] MEDS ORDERED: *HR* HYDROcodone/Acet 5/325 mg TABLET PO PRN (17:59)
[2020-04-08] MEDS ORDERED: Ondansetron 4 MG/2 ML VIAL IVP PRN (17:59)
[2020-04-08] MEDS ORDERED: Naloxone 0.4 MG/ML INJ IVP PRN (17:59)
[2020-04-08] MEDS ORDERED: Dextrose Gel 15 GM/37.5 ML TUBE PO PRN ×2 (18:03)
[2020-04-08] MEDS ORDERED: *HR* Dextrose 50 % in Water (Vial) 50 ML VIAL IVP PRN (18:03)
[2020-04-08] MEDS ORDERED: Ipratropium/Albuterol Neb 3 ML IH PRN (18:03)
[2020-04-08] MEDS ORDERED: D5% in Water 1,000 ML IVC PRN (18:03)
[2020-04-08] MEDS ORDERED: Perflutren Lipid Microsphere 1.3 ML in 0.9 % Sodium Chloride 8.7 ML IVP PRN (18:04)
[2020-04-08 19:11] LABS: Potassium 4.5 mEq/L (3.5-5.1)
[2020-04-08] MEDS: Bumetanide 1 MG/4 ML VIAL IVP SCH (19:14)
[2020-04-08 19:17] LABS: Troponin I 0.06 ng/mL (< 0.04)
[2020-04-08] MEDS ORDERED: Insulin DETEMIR 100 UNIT/ML X5UNITS SQ SCH (21:00)
[2020-04-09 01:46] LABS: Basophils # 0.1 K/mcL (0.0-0.2); Basophils % 1.5 %; Eosinophils # 0.1 K/mcL (0.0-0.6); Hematocrit 32.3 % (37.5-50.1); Hemoglobin 9.6 g/dL (12.9-16.9); Immature Granulocytes % 0.3 % (0-4); Lymphocytes # 0.5 K/mcL (0.6-4.6); Lymphocytes % 12.7 %; Mean Corpuscular HGB Conc 29.7 g/dL (31.6-35.5); Mean Corpuscular Hemoglobin 26.5 pg (28.0-33.3); Mean Corpuscular Volume 89.2 fL (83.0-100.0); Mean Platelet Volume 11.4 fL (9.4-12.4); Monocytes # 0.3 K/mcL (0.0-1.3); Monocytes % 8.1 %; Neutrophils # 2.9 K/mcL (1.6-8.9); Platelet Count 176 K/mcL (140-400); Red Blood Count 3.62 M/mcL (4.19-5.50); Red Cell Distribution Width 16.5 % (11.5-14.5); Segmented Neutrophils % 74.4 %
[2020-04-09 02:03] LABS: Calcium 8.7 mg/dL (8.6-10.3); Magnesium 2.4 mg/dL (1.6-2.6); Phosphorous 3.4 mg/dL (2.7-4.5); Potassium 4.3 mEq/L (3.5-5.1)
[2020-04-09] MEDS: *HR* Heparin 5,000 UNIT/ML VIAL SQ SCH ×2 (06:09→16:52)
[2020-04-09] MEDS ORDERED: Sacubitril/Valsartan 97/103 MG 1 TAB TABLET PO SCH ×2 (09:00→10:00)
[2020-04-09] MEDS: Magnesium Oxide 400 MG TABLET PO SCH ×2 (09:17→20:15)
[2020-04-09] MEDS: carvediloL 25 MG TABLET PO SCH ×2 (09:17→16:52)
[2020-04-09] MEDS: Bumetanide 1 MG/4 ML VIAL IVP SCH ×2 (09:17→16:52)
[2020-04-09] MEDS: Spironolactone 25 MG TABLET PO SCH (09:17)
[2020-04-09] MEDS: Aspirin Enteric Coated 81 MG Tablet PO SCH (09:17)
[2020-04-09] MEDS: Insulin LISPRO 300 UNITS/3 ML VIAL SQ SCH ×3 (09:18→16:53)
[2020-04-09] MEDS: Insulin DETEMIR 100 UNIT/ML X5UNITS SQ SCH ×2 (09:18→20:16)
[2020-04-09] MEDS: Sacubitril/Valsartan 97/103 MG 1 TAB TABLET PO SCH ×2 (11:11→20:15)
[2020-04-09] MEDS: Vitamin B Complex/Vit C/Vit E 1 EACH TABLET PO SCH (20:15)
[2020-04-09] MEDS: rOPINIRole 1 MG TABLET PO SCH (20:15)
[2020-04-10] MEDS: *HR* Heparin 5,000 UNIT/ML VIAL SQ SCH ×2 (05:47→16:57)
[2020-04-10 07:09] LABS: Basophils # 0.1 K/mcL (0.0-0.2); Basophils % 1.2 %; Eosinophils # 0.1 K/mcL (0.0-0.6); Eosinophils % 3.1 %; Hematocrit 31.9 % (37.5-50.1); Hemoglobin 9.6 g/dL (12.9-16.9); Immature Granulocytes % 0.2 % (0-4); Lymphocytes # 0.5 K/mcL (0.6-4.6); Lymphocytes % 12.5 %; Mean Corpuscular HGB Conc 30.1 g/dL (31.6-35.5); Mean Corpuscular Hemoglobin 27.5 pg (28.0-33.3); Mean Corpuscular Volume 91.4 fL (83.0-100.0); Mean Platelet Volume 11.7 fL (9.4-12.4); Monocytes # 0.4 K/mcL (0.0-1.3); Monocytes % 9.6 %; Platelet Count 190 K/mcL (140-400); Red Blood Count 3.49 M/mcL (4.19-5.50); Segmented Neutrophils % 73.4 %; White Blood Count 4.2 K/mcL (4.3-11.1)
[2020-04-10 07:18] LABS: Calcium 8.7 mg/dL (8.6-10.3); Magnesium 2.4 mg/dL (1.6-2.6); Phosphorous 4.1 mg/dL (2.7-4.5); Potassium 3.9 mEq/L (3.5-5.1)
[2020-04-10] MEDS ORDERED: Albumin 25% 12.5gm/50mL 12.5 GM/50 ML IV.SOLN IVPB SCH (08:00)
[2020-04-10] MEDS: Aspirin Enteric Coated 81 MG Tablet PO SCH (08:05)
[2020-04-10] MEDS: Insulin LISPRO 300 UNITS/3 ML VIAL SQ SCH ×3 (08:05→16:19)
[2020-04-10] MEDS: Sacubitril/Valsartan 97/103 MG 1 TAB TABLET PO SCH ×2 (08:05→21:18)
[2020-04-10] MEDS: carvediloL 25 MG TABLET PO SCH ×2 (08:05→16:18)
[2020-04-10] MEDS: Magnesium Oxide 400 MG TABLET PO SCH ×2 (08:05→21:18)
[2020-04-10] MEDS: Vitamin B Complex/Vit C/Vit E 1 EACH TABLET PO SCH ×2 (08:05→21:18)
[2020-04-10] MEDS: Spironolactone 25 MG TABLET PO SCH (08:05)
[2020-04-10] MEDS: Insulin DETEMIR 100 UNIT/ML X5UNITS SQ SCH ×2 (08:08→21:18)
[2020-04-10] MEDS: Albumin 25% 12.5gm/50mL 12.5 GM/50 ML IV.SOLN IVPB SCH ×2 (08:36→16:08)
[2020-04-10] MEDS: Bumetanide 1 MG/4 ML VIAL IVP SCH ×3 (09:28→19:23)
[2020-04-10] MEDS ORDERED: Lidocaine 4% CREAM (LMX) 5 GM TP PRN (16:14)
[2020-04-10] MEDS ORDERED: Gabapentin 300 MG CAPSULE PO ONE (16:18)
[2020-04-10] MEDS: rOPINIRole 1 MG TABLET PO SCH (21:18)
[2020-04-11 04:57] LABS: Basophils # 0.1 K/mcL (0.0-0.2); Basophils % 1.3 %; Eosinophils # 0.1 K/mcL (0.0-0.6); Eosinophils % 3.7 %; Hemoglobin 9.7 g/dL (12.9-16.9); Immature Granulocytes % 0.3 % (0-4); Lymphocytes # 0.6 K/mcL (0.6-4.6); Lymphocytes % 15.6 %; Mean Corpuscular HGB Conc 30.3 g/dL (31.6-35.5); Mean Corpuscular Hemoglobin 27.8 pg (28.0-33.3); Mean Corpuscular Volume 91.7 fL (83.0-100.0); Mean Platelet Volume 11.4 fL (9.4-12.4); Monocytes # 0.4 K/mcL (0.0-1.3); Monocytes % 11.1 %; Neutrophils # 2.6 K/mcL (1.6-8.9); Platelet Count 183 K/mcL (140-400); Red Blood Count 3.49 M/mcL (4.19-5.50); Red Cell Distribution Width 17.1 % (11.5-14.5); White Blood Count 3.8 K/mcL (4.3-11.1)
[2020-04-11 05:18] LABS: Calcium 8.7 mg/dL (8.6-10.3); Magnesium 2.5 mg/dL (1.6-2.6); Phosphorous 5.2 mg/dL (2.7-4.5); Potassium 4.1 mEq/L (3.5-5.1)
[2020-04-11] MEDS: *HR* Heparin 5,000 UNIT/ML VIAL SQ SCH (05:52)
[2020-04-11 07:00] VITALS: BP 157/87
[2020-04-11] MEDS: Insulin LISPRO 300 UNITS/3 ML VIAL SQ SCH (07:29)
[2020-04-11] MEDS: Spironolactone 25 MG TABLET PO SCH (08:07)
[2020-04-11] MEDS: Aspirin Enteric Coated 81 MG Tablet PO SCH (08:07)
[2020-04-11] MEDS: Vitamin B Complex/Vit C/Vit E 1 EACH TABLET PO SCH (08:07)
[2020-04-11] MEDS: Sacubitril/Valsartan 97/103 MG 1 TAB TABLET PO SCH (08:07)
[2020-04-11] MEDS: Magnesium Oxide 400 MG TABLET PO SCH (08:07)
[2020-04-11] MEDS: carvediloL 25 MG TABLET PO SCH (08:08)
[2020-04-11] MEDS: Insulin DETEMIR 100 UNIT/ML X5UNITS SQ SCH (08:12)
== END 2020-04-11 12:28 | disposition home or self-care (01) | DRG 291 ==
LOC: 2ANU → SUATTDRO 17:53
PROVIDERS: ADMIT Internal Medicine; ATTEND Internal Medicine

== ENCOUNTER 2021-06-14 09:09 | Inpatient (IN) ==
[2021-06-14] MEDS ORDERED: Bumetanide 1 MG/4 ML VIAL IVP ONE (09:52)
[2021-06-14 10:07] LABS: Basophils # 0.1 K/mcL (0.0-0.2); Basophils % 1.3 %; Eosinophils # 0.1 K/mcL (0.0-0.6); Eosinophils % 1.9 %; Hematocrit 36.3 % (37.5-50.1); Hemoglobin 11.5 g/dL (12.9-16.9); Immature Granulocytes % 0.4 % (0-4); Lymphocytes # 0.5 K/mcL (0.6-4.6); Lymphocytes % 8.8 %; Mean Corpuscular HGB Conc 31.7 g/dL (31.6-35.5); Mean Corpuscular Volume 94.8 fL (83.0-100.0); Mean Platelet Volume 11.6 fL (9.4-12.4); Monocytes # 0.8 K/mcL (0.0-1.3); Monocytes % 14.8 %; Neutrophils # 3.9 K/mcL (1.6-8.9); Platelet Count 116 K/mcL (140-400); Red Blood Count 3.83 M/mcL (4.19-5.50); Red Cell Distribution Width 17.4 % (11.5-14.5); Segmented Neutrophils % 72.8 %; White Blood Count 5.3 K/mcL (4.3-11.1)
[2021-06-14 10:28] LABS: Albumin 3.6 g/dL (3.5-5.7); Albumin/Globulin Ratio 1.1 (1.1-2.2); Bilirubin,Total 1.1 mg/dL (0.3-1.0); Calcium 8.4 mg/dL (8.6-10.3); Globulin 3.3 g/dL (2.4-3.5); Potassium 5.6 mEq/L (3.5-5.1); Total Protein 6.9 g/dL (6.4-8.9)
[2021-06-14 10:39] LABS: Troponin I 0.07 ng/mL (< 0.04)
[2021-06-14 10:59] LABS: ABG Base Excess -5 mEq/L (-2 to 3); ABG HCO3 19 mEq/L (21-27); ABG Oxygen Saturation 99 % (95-98); ABG PCO2 33 mmHg (35-45); ABG PH 7.37 pH Units (7.32-7.45); ABG PO2 131 mmHg (85-104); ABG TCO2 20 mEq/L (20-26)
[2021-06-14 11:07] LABS: Influenza A PCR Negative (Negative); Influenza B PCR Negative (Negative); Resp. Syncytial Virus PCR Negative (Negative)
[2021-06-14 11:24] LABS: SARS-CoV-2 by PCR (In House) Negative (Negative)
[2021-06-14] MEDS ORDERED: Naloxone 0.4 MG/ML INJ IVP PRN (12:19)
[2021-06-14] MEDS ORDERED: Acetaminophen 325 MG TABLET PO PRN (12:19)
[2021-06-14] MEDS ORDERED: Perflutren Lipid Microsphere 1.3 ML in 0.9 % Sodium Chloride 8.7 ML IVP PRN (12:30)
[2021-06-14] MEDS ORDERED: Ipratropium/Albuterol Neb 3 ML IH PRN (13:23)
[2021-06-14] MEDS ORDERED: Dextrose Gel 15 GM/37.5 ML TUBE PO PRN ×2 (13:29)
[2021-06-14] MEDS ORDERED: *HR* Dextrose 50 % in Water (Syg) 50 ML SYRINGE IVP PRN (13:29)
[2021-06-14] MEDS ORDERED: D5% in Water 1,000 ML IVC PRN (13:29)
[2021-06-14 14:48] LABS: Estimated Average Glucose 263 mg/dl; Hemoglobin A1C 10.8 %
[2021-06-14] MEDS: *HR* Heparin 5,000 UNIT/ML VIAL SQ SCH ×2 (15:16→20:20)
[2021-06-14 15:49] LABS: Calcium 8.6 mg/dL (8.6-10.3); Potassium 5.4 mEq/L (3.5-5.1)
[2021-06-14 17:07] LABS: Uric Acid 10.8 mg/dL (2.3-7.6)
[2021-06-14 17:11] LABS: Bilirubin,Urine Negative (Negative); Blood,Urine Trace (Negative); Clarity,Urine Clear (Clear); Color,Urine Light-Yellow (Yellow); Glucose,Urine (UA) Normal (Normal); Hyaline Casts,Urine Many per lpf (None Seen); Ketones,Urine Negative (Negative); Leukocyte Esterase,Urine Negative (Negative); Mucus,Urine Few per lpf (None-Few); Nitrite,Urine Negative (Negative); PH,Urine 5.5 pH Units (5.0-8.0); Protein,Urine 30 mg/dL (Neg-Trace); Specific Gravity,Urine 1.012 (1.010-1.025); Squamous Epithelial Cell,Urine Few per hpf (None-Few); Urobilinogen,Urine Normal (Normal)
[2021-06-14 17:19] LABS: Sodium, Urine 58.8 mEq/L
[2021-06-14] MEDS: Bumetanide 1 MG/4 ML VIAL IVP SCH (18:25)
[2021-06-14] MEDS: Insulin LISPRO 300 UNITS/3 ML VIAL SUBQ SCH (18:45)
[2021-06-15] MEDS: Insulin LISPRO 300 UNITS/3 ML VIAL SUBQ SCH ×4 (00:45→18:31)
[2021-06-15 03:42] LABS: Basophils # 0.1 K/mcL (0.0-0.2); Basophils % 0.9 %; Eosinophils # 0.1 K/mcL (0.0-0.6); Hematocrit 36.2 % (37.5-50.1); Hemoglobin 11.7 g/dL (12.9-16.9); Immature Granulocytes % 0.2 % (0-4); Lymphocytes # 0.5 K/mcL (0.6-4.6); Lymphocytes % 8.7 %; Mean Corpuscular HGB Conc 32.3 g/dL (31.6-35.5); Mean Corpuscular Hemoglobin 30.4 pg (28.0-33.3); Mean Platelet Volume 12.4 fL (9.4-12.4); Monocytes # 0.7 K/mcL (0.0-1.3); Monocytes % 11.8 %; Neutrophils # 4.2 K/mcL (1.6-8.9); Platelet Count 133 K/mcL (140-400); Red Blood Count 3.85 M/mcL (4.19-5.50); Red Cell Distribution Width 17.2 % (11.5-14.5); Segmented Neutrophils % 76.4 %; White Blood Count 5.5 K/mcL (4.3-11.1)
[2021-06-15 04:13] LABS: Calcium 8.3 mg/dL (8.6-10.3); Chol/HDL Ratio 2.8 (0-4.9); Potassium 5.2 mEq/L (3.5-5.1)
[2021-06-15] MEDS: *HR* Heparin 5,000 UNIT/ML VIAL SQ SCH ×3 (07:22→21:31)
[2021-06-15] MEDS: Aspirin Enteric Coated 81 MG Tablet PO SCH (10:10)
[2021-06-15] MEDS: carvediloL 25 MG TABLET PO SCH ×2 (10:13→17:03)
[2021-06-15] MEDS: Bumetanide 1 MG/4 ML VIAL IVP SCH (10:15)
[2021-06-15] MEDS: *HR* HYDROcodone/Acet 5/325 mg TABLET PO PRN (15:23)
[2021-06-15] MEDS: Albumin 25% 25gram/100mL 25 GM/100 ML IV.SOLN IVPB SCH (17:04)
[2021-06-15] MEDS: Torsemide 20 MG TABLET PO SCH (18:30)
[2021-06-15] MEDS: Mirtazapine 15 MG TABLET PO SCH (21:31)
[2021-06-15] MEDS: rOPINIRole 1 MG TABLET PO SCH (21:31)
[2021-06-15 23:34] LABS: Adenovirus F 40/41 PCR Not detected (Not detect); Astrovirus PCR Not detected (Not detect); C.difficile Toxin A/B Gene PCR Not detected (Not detect); Campylobacter by PCR Not detected (Not detect); Cryptosporidium by PCR Not detected (Not detect); Cyclospora cayetanensis PCR Not detected (Not detect); E. coli O157 by PCR Not detected (Not detect); Entamoeba histolytica PCR Not detected (Not detect); Enteroaggregative E.coli(EAEC) Not detected (Not detect); Enteropathogenic E.coli(EPEC) Not detected (Not detect); Enterotoxigenic E.coli (ETEC) Not detected (Not detect); Giardia lamblia PCR Not detected (Not detect); Norovirus GI/GII PCR Not detected (Not detect); Plesiomonas shigelloides PCR Not detected (Not detect); Rotavirus A PCR Not detected (Not detect); Salmonella PCR Not detected (Not detect); Sapovirus PCR Not detected (Not detect); Shig/EnteroinvasiveE coli EIEC Not detected (Not detect); Shigalike tox-prod E coli STEC Not detected (Not detect); Vibrio PCR Not detected (Not detect); Vibrio cholerae PCR Not detected (Not detect); Yersinia enterocolitica PCR Not detected (Not detect)
[2021-06-16] MEDS: Insulin LISPRO 300 UNITS/3 ML VIAL SUBQ SCH ×4 (01:04→17:40)
[2021-06-16 01:12] LABS: Basophils % 0.9 %; Eosinophils # 0.1 K/mcL (0.0-0.6); Eosinophils % 2.7 %; Hematocrit 34.6 % (37.5-50.1); Hemoglobin 11.1 g/dL (12.9-16.9); Immature Granulocytes % 0.5 % (0-4); Lymphocytes # 0.4 K/mcL (0.6-4.6); Lymphocytes % 8.4 %; Mean Corpuscular HGB Conc 32.1 g/dL (31.6-35.5); Mean Corpuscular Hemoglobin 30.2 pg (28.0-33.3); Mean Corpuscular Volume 94.3 fL (83.0-100.0); Mean Platelet Volume 11.9 fL (9.4-12.4); Monocytes # 0.6 K/mcL (0.0-1.3); Monocytes % 12.4 %; Neutrophils # 3.3 K/mcL (1.6-8.9); Platelet Count 107 K/mcL (140-400); Red Blood Count 3.67 M/mcL (4.19-5.50); Red Cell Distribution Width 17.3 % (11.5-14.5); Segmented Neutrophils % 75.1 %; White Blood Count 4.4 K/mcL (4.3-11.1)
[2021-06-16 01:32] LABS: Albumin 3.6 g/dL (3.5-5.7); Albumin/Globulin Ratio 1.2 (1.1-2.2); Calcium 8.1 mg/dL (8.6-10.3); Potassium 5.5 mEq/L (3.5-5.1); Total Protein 6.6 g/dL (6.4-8.9)
[2021-06-16] MEDS: *HR* Heparin 5,000 UNIT/ML VIAL SQ SCH ×3 (05:08→20:00)
[2021-06-16] MEDS: *HR* HYDROcodone/Acet 5/325 mg TABLET PO PRN ×2 (05:09→20:00)
[2021-06-16] MEDS: Aspirin Enteric Coated 81 MG Tablet PO SCH (08:16)
[2021-06-16] MEDS: carvediloL 25 MG TABLET PO SCH ×2 (08:16→17:40)
[2021-06-16] MEDS: Albumin 25% 25gram/100mL 25 GM/100 ML IV.SOLN IVPB SCH ×3 (08:16→17:40)
[2021-06-16] MEDS: Torsemide 20 MG TABLET PO SCH (08:16)
[2021-06-16] MEDS: SODIUM ZIRCONIUM CYCLOSILICATE 5 GM POWD.PACK PO SCH (11:43)
[2021-06-16] MEDS: Ondansetron 4 MG/2 ML VIAL IVP PRN (14:49)
[2021-06-16] MEDS: rOPINIRole 1 MG TABLET PO SCH (20:00)
[2021-06-16] MEDS: Mirtazapine 15 MG TABLET PO SCH (20:00)
[2021-06-17 01:05] LABS: Basophils % 0.9 %; Eosinophils # 0.1 K/mcL (0.0-0.6); Eosinophils % 2.4 %; Hematocrit 33.2 % (37.5-50.1); Hemoglobin 10.7 g/dL (12.9-16.9); Immature Granulocytes % 0.4 % (0-4); Lymphocytes # 0.4 K/mcL (0.6-4.6); Lymphocytes % 9.1 %; Mean Corpuscular HGB Conc 32.2 g/dL (31.6-35.5); Mean Corpuscular Hemoglobin 30.7 pg (28.0-33.3); Mean Corpuscular Volume 95.4 fL (83.0-100.0); Monocytes # 0.7 K/mcL (0.0-1.3); Monocytes % 14.9 %; Neutrophils # 3.4 K/mcL (1.6-8.9); Platelet Count 103 K/mcL (140-400); Red Blood Count 3.48 M/mcL (4.19-5.50); Red Cell Distribution Width 17.2 % (11.5-14.5); Segmented Neutrophils % 72.3 %; White Blood Count 4.6 K/mcL (4.3-11.1)
[2021-06-17] MEDS: Insulin LISPRO 300 UNITS/3 ML VIAL SUBQ SCH ×4 (01:19→16:43)
[2021-06-17] MEDS: Albumin 25% 25gram/100mL 25 GM/100 ML IV.SOLN IVPB SCH ×3 (02:24→16:30)
[2021-06-17 02:48] LABS: Calcium 8.1 mg/dL (8.6-10.3); Potassium 5.5 mEq/L (3.5-5.1)
[2021-06-17] MEDS: *HR* Heparin 5,000 UNIT/ML VIAL SQ SCH ×3 (05:33→21:45)
[2021-06-17] MEDS ORDERED: *HR* Heparin 10,000 UNIT/10 ML VIAL IV PRN ×2 (08:47)
[2021-06-17] MEDS ORDERED: 0.9 % Sodium Chloride 250 ML IVC PRN (08:47)
[2021-06-17] MEDS ORDERED: 0.9 % Sodium Chloride 1,000 ML PRIME SCH (09:00)
[2021-06-17] MEDS: carvediloL 25 MG TABLET PO SCH ×2 (09:15→18:23)
[2021-06-17] MEDS: SODIUM ZIRCONIUM CYCLOSILICATE 5 GM POWD.PACK PO SCH (09:47)
[2021-06-17] MEDS: *HR* HYDROcodone/Acet 5/325 mg TABLET PO PRN ×2 (09:49→21:44)
[2021-06-17 10:48] LABS: Hepatitis B Surface Antibody < 3.10 mIU/mL
[2021-06-17 10:57] LABS: Hepatitis B Surface Antigen Nonreactive (Nonreactive)
[2021-06-17] MEDS ORDERED: Heparin 1,000 UNITS/500 mL 500 ML ONE (13:59)
[2021-06-17] MEDS ORDERED: Lidocaine/EPI 1:100k 1% 50 ML VIAL ONE (14:00)
[2021-06-17] MEDS ORDERED: *HR* FentaNYL (PF) 100 MCG/2 ML VIAL IVP ONE (14:01)
[2021-06-17] MEDS ORDERED: *HR* Midazolam HCl 2 MG/2 ML VIAL IVP ONE (14:01)
[2021-06-17] MEDS ORDERED: 0.9 % Sodium Chloride 500 ML ONE (14:12)
[2021-06-17] MEDS: ceFAZolin 1,000 MG in 0.9 % Sodium Chloride Mini Bag 100 ML IVPB SCH ×2 (14:29→14:46)
[2021-06-17] MEDS ORDERED: *HR* Heparin 5,000 UNIT/ML VIAL ONE (14:37)
[2021-06-17] MEDS ORDERED: *HR* Warfarin 5 MG TABLET PO ONE (18:00)
[2021-06-17] MEDS ORDERED: Warfarin perPT PO PRN (18:00)
[2021-06-17] MEDS: Mirtazapine 15 MG TABLET PO SCH (21:45)
[2021-06-17] MEDS: rOPINIRole 1 MG TABLET PO SCH (21:45)
[2021-06-18] MEDS: Insulin LISPRO 300 UNITS/3 ML VIAL SUBQ SCH ×5 (00:55→22:15)
[2021-06-18] MEDS: Albumin 25% 25gram/100mL 25 GM/100 ML IV.SOLN IVPB SCH ×3 (02:57→17:03)
[2021-06-18 03:33] LABS: Calcium 8.3 mg/dL (8.6-10.3); Potassium 4.8 mEq/L (3.5-5.1)
[2021-06-18 04:27] LABS: INR 1.8; Prothrombin Time 19.5 Seconds (9.4-12.1)
[2021-06-18] MEDS: *HR* Heparin 5,000 UNIT/ML VIAL SQ SCH (04:57)
[2021-06-18] MEDS ORDERED: *HR* Heparin 10,000 UNIT/10 ML VIAL IV PRN (08:14)
[2021-06-18] MEDS ORDERED: 0.9 % Sodium Chloride 250 ML IVC PRN (08:14)
[2021-06-18] MEDS ORDERED: 0.9 % Sodium Chloride 1,000 ML PRIME SCH (08:15)
[2021-06-18] MEDS: carvediloL 25 MG TABLET PO SCH ×2 (08:34→17:03)
[2021-06-18] MEDS: SODIUM ZIRCONIUM CYCLOSILICATE 5 GM POWD.PACK PO SCH (08:42)
[2021-06-18] MEDS: Ondansetron 4 MG/2 ML VIAL IVP PRN (08:52)
[2021-06-18] MEDS: *HR* HYDROcodone/Acet 5/325 mg TABLET PO PRN ×2 (08:53→23:24)
[2021-06-18] MEDS ORDERED: *HR* Warfarin 1 MG TABLET PO ONE (18:00)
[2021-06-18] MEDS: rOPINIRole 1 MG TABLET PO SCH (22:15)
[2021-06-18] MEDS: Mirtazapine 15 MG TABLET PO SCH (22:15)
[2021-06-19 01:37] LABS: INR 1.8
[2021-06-19 01:42] LABS: Calcium 8.4 mg/dL (8.6-10.3); Potassium 4.4 mEq/L (3.5-5.1)
[2021-06-19] MEDS ORDERED: 0.9 % Sodium Chloride 250 ML IVC PRN (07:41)
[2021-06-19] MEDS: carvediloL 25 MG TABLET PO SCH (08:09)
[2021-06-19] MEDS: Insulin LISPRO 300 UNITS/3 ML VIAL SUBQ SCH ×2 (08:09→13:37)
[2021-06-19 08:19] VITALS: PULSE 61; O2SAT 97
[2021-06-19] MEDS ORDERED: *HR* Heparin 10,000 UNIT/10 ML VIAL IV PRN (08:24)
[2021-06-19 11:41] VITALS: TEMP 97.6
[2021-06-19 13:01] VITALS: BP 149/82
[2021-06-19] MEDS ORDERED: *HR* Warfarin 2.5 MG TABLET PO ONE (18:00)
== END 2021-06-19 14:22 | disposition home or self-care (01) | DRG 280 ==
LOC: EMEROOARM 09:09 → 2ANU 09:09 → SUATTDRO 06-16 18:41
PROVIDERS: ADMIT General Practice; ATTEND Internal Medicine
PROC: IRPERMA (2021-06-17 12:00)